=== PATIENT | male | born 1945 | race African-American/Black ===

== ENCOUNTER 2016-11-19 08:15 | Outpatient (CLI) | payer MEDICARE, BC ==
[2016-11-19 11:41] LABS: #Basophils 0.1 thou/uL (0.0-0.2); #Eosinphils 0.1 thou/uL (0.0-0.7); #Lymphocytes 2.2 thou/uL (1.20-3.40); #Monocytes 0.7 thou/uL (0.11-0.59); #Neutrophils 4.4 thou/uL (1.40-6.50); %Eosinophils 1.5 % (0.0-10.0); %Lymphocytes 29.8 % (21.0-51.0); Hematocrit 41.8 % (42.0-52.0); Mean Platelet Volume 8.5 fL (7.4-10.4); Red Blood Cell (RBC) Count 4.62 mill/uL (4.70-6.10); White Blood Cell (WBC) Count 7.4 thou/uL (4.8-10.8)
[2016-11-19 11:45] LABS: Hemoglobin A1c 7.5 % (4.0-6.0)
[2016-11-19 12:04] LABS: Anion Gap 15 mmol/L (10-20); BUN (Urea Nitrogen) 13 mg/dL (8.4-25.7); Calc. Creatinine Clearance 0 mL/min (70-130); Carbon Dioxide 26 mmol/L (23-31); Chloride 106 mmol/L (98-107); Estimated GFR-MDRD 70
== END 2016-11-19 08:16 | disposition home or self-care (01) ==
LOC: LABBT 08:15
PROVIDERS: ATTEND Surgery
DX: Z01.812 Encounter for preprocedural laboratory examination (principal); C18.9 Malignant neoplasm of colon, unspecified
CPT/HCPCS: 80048; 83036; 85025

== ENCOUNTER 2016-11-20 09:24 | Outpatient (CLI) | payer MEDICARE, BC ==
--- NOTE | 2016-11-20 14:15 | NM ---
WHOLE BODY BONE SCAN: Date: 11/20/16 HISTORY: Malignant neoplasm of ascending colon. RADIOPHARMACEUTICAL: 33 mCi technetium-99m MDP injected intravenously. FINDINGS: Increased uptake in the shoulders, elbows, wrists, and feet are consistent with degenerative changes . Foci of increased uptake in the maxilla and mandible are likely due to periodontal disease. No oth er abnormal areas of tracer localization seen to suggest metastatic disease. Tracer excretion throug h the kidneys is within normal limits. IMPRESSION: No evidence of osseous metastatic disease. POS: [facility]
== END 2016-11-20 09:25 | disposition home or self-care (01) ==
LOC: NM 09:24
PROVIDERS: ATTEND Internal Medicine Hematology & Oncology
DX: C18.2 Malignant neoplasm of ascending colon (principal); I10 Essential (primary) hypertension
CPT/HCPCS: 78306; A9503

== ENCOUNTER 2016-11-20 10:15 | Inpatient (IN) | payer MEDICARE, BC ==
[2016-11-19 08:54] VITALS: BMI 36.2
[2016-11-27] MEDS ORDERED: Sodium Chloride 0.9% 100 ML ONE (06:54)
[2016-11-27] MEDS ORDERED: Midazolam HCl 2 mg/2 ml Vial ONE ×2 (06:57→12:09)
[2016-11-27] MEDS ORDERED: Dexamethasone 4 mg/ml Vial ONE (06:57)
[2016-11-27] MEDS ORDERED: Fentanyl 100 MCG/2 ML VIAL ONE ×3 (06:57→12:09)
[2016-11-27] MEDS ORDERED: Indocyanine Green 25 MG/10 ML VIAL ONE (07:15)
[2016-11-27] MEDS ORDERED: Fentanyl 250 MCG/5 ML VIAL ONE (07:17)
[2016-11-27] MEDS ORDERED: Bupivacaine/Epinephrine 0.5% 10 ML VIAL ONE (07:37)
[2016-11-27] MEDS ORDERED: Ondansetron HCl/PF 4 MG/2 ML Vial ONE (07:55)
[2016-11-27] MEDS ORDERED: Propofol 200 MG/20 ML VIAL ONE (07:55)
[2016-11-27] MEDS ORDERED: Promethazine HCl 25 MG/ML VIAL IM PRN ×2 (09:48→13:21)
[2016-11-27] MEDS ORDERED: Ondansetron HCl/PF 4 MG/2 ML Vial IVP PRN ×2 (09:48→13:21)
[2016-11-27] MEDS ORDERED: Promethazine HCl 25 MG/ML VIAL SLOW IVP PRN (09:48)
[2016-11-27] MEDS ORDERED: Rocuronium Bromide 50 MG/5 ML VIAL ONE ×2 (09:54→09:56)
[2016-11-27] MEDS ORDERED: SUGAMMADEX SODIUM 500 MG/5 ML VIAL ONE (10:36)
[2016-11-27] MEDS ORDERED: Insulin Regular 300 UNITS/3 ML VIAL SC PRN (12:03)
[2016-11-27] MEDS ORDERED: Dextrose 50% Abboject 50 ML SYRINGE SLOW IVP PRN ×2 (12:03→13:21)
[2016-11-27] MEDS ORDERED: Dextrose 5% in Water 1,000 ML IV PRN ×2 (12:03→13:21)
[2016-11-27 13:14] LABS: Oxyhemoglobin 97.6 % (94.0-97.0); Sodium 141 mmol/L (135-148)
[2016-11-27 13:15] LABS: Mode OR ABG; Vent YES
[2016-11-27] MEDS ORDERED: HumaLOG 300 UNITS/3 ML VIAL SC PRN (13:21)
[2016-11-27] MEDS ORDERED: Morphine Sulfate 2 MG/ML SYRINGE SLOW IVP PRN (13:21)
[2016-11-27] MEDS ORDERED: Gabapentin 300 MG CAP PO PRN (13:21)
[2016-11-27] MEDS: Sodium Chloride 0.9% 1,000 ML IV SCH (15:09)
[2016-11-27] MEDS: Acetaminophen 1,000 MG in Premix Bag 1 BAG IVPB SCH ×2 (15:09→21:12)
[2016-11-27] MEDS: Enoxaparin Sodium 40 MG/0.4 ML SYRINGE SC SCH (21:13)
[2016-11-27] MEDS: Atorvastatin Calcium 40 MG TAB PO SCH (21:13)
[2016-11-27] MEDS: Famotidine 20 MG TAB PO SCH (21:13)
[2016-11-27] MEDS: Famotidine/PF 20 mg/2ml Vial SLOW IVP SCH (21:14)
[2016-11-28] MEDS: Acetaminophen 1,000 MG in Premix Bag 1 BAG IVPB SCH ×2 (01:59→08:54)
[2016-11-28 05:19] LABS: #Lymphocytes 1.4 thou/uL (1.20-3.40); #Neutrophils 6.5 thou/uL (1.40-6.50); %Basophils 0.2 % (0.0-1.0); %Eosinophils 0.1 % (0.0-10.0); %Lymphocytes 15.7 % (21.0-51.0); %Monocytes 11.4 % (0.0-10.0); Hematocrit 35.2 % (42.0-52.0); Mean Platelet Volume 7.5 fL (7.4-10.4); Red Blood Cell (RBC) Count 3.89 mill/uL (4.70-6.10); White Blood Cell (WBC) Count 8.9 thou/uL (4.8-10.8)
[2016-11-28 05:27] LABS: Anion Gap 12 mmol/L (10-20); BUN (Urea Nitrogen) 9 mg/dL (8.4-25.7); Calc. Creatinine Clearance 107 mL/min (70-130); Calcium 9.2 mg/dL (7.8-10.44); Carbon Dioxide 23 mmol/L (23-31); Chloride 109 mmol/L (98-107); Estimated GFR-MDRD 86
[2016-11-28] MEDS: Sodium Chloride 0.9% 1,000 ML IV SCH (06:38)
[2016-11-28] MEDS: Famotidine 20 MG TAB PO SCH ×2 (08:53→21:09)
[2016-11-28] MEDS: Famotidine/PF 20 mg/2ml Vial SLOW IVP SCH ×2 (08:54→21:09)
--- NOTE | 2016-11-28 13:48 | PRG ---
DATE OF SERVICE: 11/28/2016 Postoperative day 1, right colectomy. The patient is doing well. He is ambulatory in the hallway. He is tolerating his liquid diet without difficulty. His pain is well controlled. His sugars are more normal. He is afebrile. Vital signs are stable. Abdomen is soft and nontender. Wounds are h ealing well. White blood cell count 8, hemoglobin 11, platelet count 248. Sodium 140, potassium 3. 7, creatinine 1. ASSESSMENT: Postoperative day 1 right colectomy. PLAN: Advance to full liquids. Transfer to floor, likely home tomorrow if continues to do well.
[2016-11-28] MEDS ORDERED: Dextrose 5% in Water 1,000 ML IV PRN (18:00)
[2016-11-28] MEDS ORDERED: Dextrose 50% Abboject 50 ML SYRINGE SLOW IVP PRN (18:00)
[2016-11-28] MEDS ORDERED: HumaLOG 300 UNITS/3 ML VIAL SC PRN (18:00)
[2016-11-28] MEDS: Enoxaparin Sodium 40 MG/0.4 ML SYRINGE SC SCH (21:06)
[2016-11-28] MEDS: Atorvastatin Calcium 40 MG TAB PO SCH (21:09)
[2016-11-29] MEDS: Famotidine 20 MG TAB PO SCH ×2 (08:43→20:22)
[2016-11-29] MEDS: Famotidine/PF 20 mg/2ml Vial SLOW IVP SCH ×2 (08:44→20:23)
[2016-11-29] MEDS ORDERED: HYDROcodone/Acetaminophen 10/325 mg Tablet PO PRN ×2 (09:48)
[2016-11-29] MEDS: Sodium Chloride 0.9% 1,000 ML IV SCH (11:08)
--- NOTE | 2016-11-29 13:35 | PRG ---
DATE OF SERVICE: 11/29/2016 Postop day #2 right colectomy. SUBJECTIVE: Mr. Sherwood is doing well. He is tolerating a full liquid diet. He has not had a bow el movement yet, but he denies nausea, bloating or abdominal pain. PHYSICAL EXAMINATION: VITAL SIGNS: Blood pressure 140/81, pulse 60, respirations 18, temperature 97.9. Urine output is g ood. ABDOMEN: Soft, nontender, minimally distended. Wounds are healing well. ASSESSMENT: Postop day #2 right colectomy. PLAN: Continue full liquids. Encouraged ambulation. Discontinue the Zimmer. This was difficult to place secondary to BPH most likely. Plan likely discharge home tomorrow.
[2016-11-29] MEDS ORDERED: Tamsulosin HCl 0.4 MG CAP PO SCH ×2 (13:45→21:00)
[2016-11-29] MEDS: Atorvastatin Calcium 40 MG TAB PO SCH (20:22)
[2016-11-29] MEDS: Enoxaparin Sodium 40 MG/0.4 ML SYRINGE SC SCH (20:23)
--- NOTE | 2016-11-30 07:54 | DIS ---
DATE OF ADMISSION: 11/27/2016 DATE OF DISCHARGE: 11/30/2016 ADMITTING DIAGNOSIS: Ascending colon cancer. DISCHARGE DIAGNOSIS: Ascending colon cancer. PROCEDURES: Laparoscopic right colectomy by Dr. Houser without complication. CONDITION AT DISCHARGE: Improved. STAFF: Dr. Houser. HOSPITAL COURSE: The patient had a clear liquid immediately postoperative. He was in the IMCU for insulin drip secondary to new SSI protocol. On postop day #1, he was transferred to the floor. He is ambulatory. There was some difficulty in placing his Zimmer intraoperatively and so it was left i n for 48 hours; it was removed yesterday afternoon. He is able to void on his own without difficult y. This morning he is doing well. He is tolerating thick liquid diet. He is discharged to home to follow up with me in 2 weeks. Prescriptions sent to [facility] for Parnell and Zofran. He will stay on a full liquid diet for 2 more days before advancing to soft mechanical, no salad or roughage until followup.
[2016-11-30] MEDS ORDERED: Milk Of Magnesia 30 ML UDCUP PO SCH (08:45)
[2016-11-30 08:52] VITALS: BP 142/86; TEMP 98.3
[2016-11-30] MEDS: Famotidine 20 MG TAB PO SCH (08:58)
[2016-11-30] MEDS ORDERED: Non-Formulary Item 1 EACH (Irbesartan/Hydrochlorothiazide [Irbesartan-Hctz 300-12.5 Mg Tb PO SCH (09:00)
[2016-11-30] MEDS ORDERED: Tamsulosin HCl 0.4 MG CAP PO SCH (09:00)
[2016-11-30] MEDS ORDERED: Hydrochlorothiazide 25 MG TAB PO SCH (09:00)
[2016-11-30] MEDS: Famotidine/PF 20 mg/2ml Vial SLOW IVP SCH (09:27)
--- NOTE | 2016-12-03 09:24 | OP ---
DATE OF PROCEDURE: 11/27/2016 PREOPERATIVE DIAGNOSIS: Ascending colon cancer. POSTOPERATIVE DIAGNOSIS: Ascending colon cancer. PROCEDURE: Laparoscopic da Leticia robotic converted to open right hemicolectomy. SURGEON: Jonathan Houser M.D. ANESTHESIA: General. ESTIMATED BLOOD LOSS: 200 mL. COMPLICATIONS: None. FINDINGS: Due to adhesions in the pelvis, there was some difficulty in the small bowel reaching up to the transverse colon. Decision was made to place the hand-assist port and do the anastomosis ext racorporeal to make sure there was no tension on the anastomosis. TECHNIQUE: The patient was taken to the operating room and placed supine on the table, preop tap bl ocks and the abdomen was shaved in the preop holding area. The abdomen was prepped and draped in a sterile fashion and a Zimmer catheter was placed. Left subcostal 11-mm Optiview trocar was placed in the usual fashion without injury. High-flow pneumoperitoneum was obtained. Robot 8 mm port placed at the left of the umbilicus, a 11 port placed in the left upper lateral abdomen. The 11 mm subcos da port switched out to 15 mm robot stapler port. An 8 mm robot assist port was placed in the left lower quadrant. The patient was placed in Trendelenburg position and rolled to the left. All port s were docked to the robot. Surgeon goes to the console. Medial to lateral dissection was performe d starting at the base of the ileocolic artery. Ileocolic artery was taken using vessel sealer. Di ssection was performed all the way towards to the white line of Toldt laterally. The ureter was fou nd and excluded from the dissection. Vessel sealer was then used through this window to dissect up to the surface of the terminal ileum. Cautery was then used to mobilize up the medial aspect toward s the hepatic flexure. The duodenum was found and excluded from the dissection. Dissection was per formed all the way to the proximal transverse colon. A circumferential dissection of the proximal t ransverse colon was performed. After the right colon was fully mobilized, a robot stapler was fired across the terminal ileum. Two reloads were fired across the proximal transverse colon. Thus, the ascending colon specimen was thus unhurt. The small bowel was able to pull up into the upper abdom en, but under a significant amount of tension, this was difficult to do robotic, so the decision was made to place a hand-assist port. All ports were then undocked from the robot. A 6 cm incision wa s made in the upper midline. Hand-assist port was placed. Small bowel was able to be manipulated u p by lysing some adhesions in the pelvis in an isoperistaltic fashion against the transverse colon. Enterotomy was made on the end of the small bowel segment and the more distal transverse colon and a [id number] isoperistaltic anastomosis was performed. The common enterotomy was closed using a 2 -0 Vicryl running in two layers. There was no ischemia to the staple line. The colon specimen was removed from the abdomen through this port. All instrument counts, needle counts, and lap counts we re correct. The hand-assist port was removed. Surgeon and assistants all changed gown and gloves. Midline fascia was closed using #1 PDS from the top and the bottom and tied in the middle. Subcuta neous tissues were irrigated copiously using sterile solution. The incisions were closed using 3-0 Vicryl, 4-0 Monocryl, and Dermabond. The patient was en route to recovery in stable condition. All instrument counts, needle counts, and lap counts were correct.
== END 2016-11-30 09:22 | disposition home or self-care (01) | DRG 330 ==
LOC: SURG A 11-27 05:41 → IMCU/EMU 11-27 12:10 → SURG A 11-28 17:38
PROVIDERS: ADMIT Surgery; ATTEND Surgery
PROC: 0DTK4ZZ Resection of Ascending Colon, Percutaneous Endoscopic Approach (ICD-10-PCS; principal; 2016-11-27)
PROC: 8E0W4CZ Robotic Assisted Procedure of Trunk Region, Percutaneous Endoscopic Approach (ICD-10-PCS; 2016-11-27)
DX: C18.2 Malignant neoplasm of ascending colon (principal); I69.351 Hemiplegia and hemiparesis following cerebral infarction affecting right dominant side; E11.9 Type 2 diabetes mellitus without complications; I10 Essential (primary) hypertension; E78.1 Pure hyperglyceridemia
CPT/HCPCS: 36415; 36416; 80048; 82805; 85025; 86850; 86900; 86901; 88309; J0360; J0694; J1100; J1650; J1815; J2250; J2270; J2405; J2704; J3010; J3490; J7050; J7620; S0028

== ENCOUNTER 2016-12-03 00:30 | Inpatient (IN) | payer MEDICARE, BC ==
[2016-12-03 01:49] LABS: Lactic Acid - Sepsis 6.7 mmol/L (0.5-2.2)
[2016-12-03 01:52] LABS: Magnesium 3.2 mg/dL (1.6-2.6)
[2016-12-03] MEDS ORDERED: Sodium Chloride 0.9% 0 ML ONE ×2 (02:06→02:08)
[2016-12-03] MEDS ORDERED: Piperacillin/Tazobactam 4.5 GM VIAL ONE (02:06)
[2016-12-03] MEDS ORDERED: Benzocaine 20% Spray 60 ML CAN ONE ×2 (02:30→02:34)
[2016-12-03] MEDS ORDERED: Oxymetazoline HCl 0.05% ( 15 ML ) ONE (02:30)
[2016-12-03] MEDS ORDERED: Ondansetron HCl/PF 4 MG/2 ML Vial ONE (03:10)
[2016-12-03 04:03] VITALS: BMI 36.1
[2016-12-03] MEDS ORDERED: Sodium Chloride 0.65% Nasal 44 ML BOT EA NARE PRN (04:17)
[2016-12-03] MEDS ORDERED: Eucerin (Mineral Oil/Petrolatum,White) 30 gm Jar TOP PRN (04:17)
[2016-12-03] MEDS ORDERED: Artificial Tears 18 DROP/0.9 ML EA EYE PRN (04:17)
[2016-12-03] MEDS ORDERED: Acetaminophen 650 MG Suppository PR PRN (04:17)
[2016-12-03] MEDS ORDERED: hydrALAZINE 20 MG/ML VIAL SLOW IVP PRN (04:17)
[2016-12-03] MEDS ORDERED: Dextrose 5% in Water 1,000 ML IV PRN (04:24)
[2016-12-03] MEDS ORDERED: Dextrose 50% Abboject 50 ML SYRINGE SLOW IVP PRN (04:24)
[2016-12-03] MEDS: Sodium Chloride 0.9% 1,000 ML IV SCH ×2 (04:43→08:50)
[2016-12-03 05:10] LABS: ALT (SGPT) 12 U/L (8-55); AST (SGOT) 9 U/L (5-34); Alkaline Phosphatase 76 U/L (40-150); Anion Gap 21 mmol/L (10-20); BUN (Urea Nitrogen) 37 mg/dL (8.4-25.7); Bilirubin, Total 0.8 mg/dL (0.2-1.2); Calc. Creatinine Clearance 38 mL/min (70-130); Calcium 9.6 mg/dL (7.8-10.44); Carbon Dioxide 22 mmol/L (23-31); Chloride 102 mmol/L (98-107); Estimated GFR-MDRD 26; Globulin 3.3 g/dL (2.4-3.5); Protein, Total 6.4 g/dL (5.8-8.1); Uric Acid 5.8 mg/dL (3.5-7.2)
[2016-12-03 05:23] LABS: Troponin I 0.045 ng/mL (< 0.028)
[2016-12-03] MEDS: metroNIDAZOLE 500 MG in Premix Bag 1 BAG IVPB SCH ×2 (05:45→15:27)
[2016-12-03 05:47] LABS: Band 35 % (5-11); Hematocrit 39.5 % (42.0-52.0); Mean Platelet Volume 7.7 fL (7.4-10.4); Metamyelocyte 8 % (0-0); Neutrophil 37 % (42-75); Reactive Lymphocytes 1 % (0-10); Red Blood Cell (RBC) Count 4.44 mill/uL (4.70-6.10); White Blood Cell (WBC) Count 9.6 thou/uL (4.8-10.8)
--- NOTE | 2016-12-03 06:09 | CON ---
DATE OF CONSULTATION: 12/03/2016 PRIMARY CARE PHYSICIAN: Dr. Rishi Hernandez, in the [place]. CHIEF COMPLAINT: High-grade distal small bowel obstruction. PRIMARY ATTENDING: Jonathan Houser M.D. REASON FOR CONSULT: Medical comanagement. HISTORY OF PRESENT ILLNESS: A 71-year-old -[place] male, who was recently admitted in our ospital on 11/27/2016. Patient had laparoscopic right hemicolectomy for ascending colon cancer. Th e patient was discharged home on 11/30/2016. Patient reports that when he was discharged at that [facility] he was having hiccups since discharge, the patient is not doing well at home. He is feeling more weak and he was also having difficulty breathing. His last bowel movement was on Saturday. He had episode of vomiting yesterday at home. He was feeling nausea, poor appetite, abdominal distention, and abdominal crampy pain. With these symptoms, he presented to [facility] where he was evaluated and subsequently, he was transferred to our hospital for higher level of care. In our emergency room, patient required NG tube and significant amount of material from stomach came out. In the emergency room, the patient's blood pressure dropped to 74/54. Routine blood tests sh owed lactic acidosis. The patient was given broad-spectrum antibiotic therapy. Subsequently, liz izquierdo was admitted to [facility]. Patient was seen in the emergency room and subsequently in IMCU as well. Patient denies any fever o r cough. He denies any melena, hematochezia. He denies any lower extremity swelling or calf tender ness. REVIEW OF SYSTEMS: The following complete review of systems was negative, unless otherwise mentione d in the HPI or below: Constitutional: Weight loss or gain, ability to conduct usual activities. Skin: Rash, itching. Eyes: Double vision, pain. ENT/Mouth: Nose bleeding, neck stiffness, pain, tenderness. Cardiovascular: Palpitations, dyspnea on exertion, orthopnea. Respiratory: Shortnes s of breath, wheezing, cough, hemoptysis, fever or night sweats. Gastrointestinal: Poor appetite, abdominal pain, heartburn, nausea, vomiting, constipation, or diarrhea. Genitourinary: Urgency, fr equency, dysuria, nocturia. Musculoskeletal: Pain, swelling. Neurologic/Psychiatric: Anxiety, de pression. Allergy/Immunologic: Skin rash, bleeding tendency. Please see my HPI for pertinent posi tives and negatives. All other review of systems reviewed and negative except as mentioned in the H PI. PAST MEDICAL HISTORY: Diabetes type 2, hypertension, dyslipidemia, morbid obesity, sleep apnea, gou t, history of cerebrovascular accident, adenocarcinoma of colon, nephrolithiasis, chronic low back p ain. PAST SURGICAL HISTORY: Laparoscopic right hemicolectomy, back surgery, cataract surgery, colonoscop y. PAST PSYCHIATRIC HISTORY: Reviewed and negative. SOCIAL HISTORY: Patient is and lives at home with his . No history of tobacco, alcohol , or illicit drug abuse. FAMILY HISTORY: Diabetes, hypertension, heart disease that runs among several family members. ALLERGIES: No known drug allergies. CURRENT HOME MEDICATIONS: The patient was discharged home on following medications: Allopurinol 30 0 mg p.o. daily, aspirin 81 mg p.o. daily, vitamin D3 50,000 units as directed, Plavix 75 mg p.o. da abram, gabapentin 300 mg t.i.d., irbesartan with hydrochlorothiazide 300/12.5 one tablet p.o. daily, T oprol-XL 200 mg p.o. at bedtime, potassium citrate 10 mEq p.o. t.i.d., amlodipine with Lipitor 10/40 one tablet p.o. daily, metformin 500 mg p.o. b.i.d., oxycodone one tablet p.o. b.i.d. EMERGENCY ROOM COURSE: Patient required NG tube placement and 2900 mL brown liquid came out immedia tely. The patient had low blood pressure and patient was given bolus fluids. His lactate was eleva saige and that is why the patient was given vancomycin and Zosyn. The patient was given Zofran and IV fluid. PHYSICAL EXAMINATION: VITAL SIGNS: On arrival, blood pressure 95/48, pulse 97, respiratory rate 22, temperature 97.8, sat uration 94% on 2 liter oxygen. Weight 127 kilograms. Lowest blood pressure was 77/46. GENERAL: Patient is currently alert, awake, has NG tube in place. No obvious acute distress, has i ntractable hiccups. HEENT: Head: Normocephalic, atraumatic. Eyes: Pupils round, reactive to light. Extraocular musc le intact. ENT: Oropharynx within normal limits. Moist mucous membranes. NG tube in place. NECK: Supple. Range of motion is normal. No JVD, no thyromegaly, no carotid bruits. LUNGS: Clear to auscultation without any rhonchi or rales. Reduced air entry at base. CARDIAC: S1, S2 regular, tachycardia, no murmur, no gallop, no rub. ABDOMEN: Hypoactive bowel sounds. Surgical site is clean and healing. Mild abdominal distention n oted. Obesity present. BACK: Unremarkable, no CVA tenderness. EXTREMITIES: Upper extremity passive movements of all joints are normal. Lower extremities: No ed yamileth. Good peripheral pulsation. SKIN: No skin rash. HEMATOLOGICAL SYSTEM: No lymphadenopathy. PSYCHIATRIC: Normal affect. SIGNIFICANT LABS: 1. EKG, sinus tachycardia, left axis deviation. Chest x-ray based on my review, no acute cardiopul monary process. CT of the abdomen and pelvis showing high-grade distal small bowel obstruction. La ctic acid 6.7, magnesium 3.2, CK 70, CK-MB 1.2, troponin I 0.100. BNP 208.4. BMP shows sodium 139, potassium 3.5, carbon dioxide 24, glucose 341. Creatinine 2.8, BUN 31, calcium 10.0. 2. LFT: AST 10, ALT 14, alkaline phosphatase 81, albumin 3.7, protein 8.5. Lipase 5. CBC: WBC 9 .5, hemoglobin 13.0, platelets 394. ASSESSMENT AND PLAN: 1. High-grade distal small bowel obstruction. This patient has nausea, vomiting, abdominal distent ion, and crampy abdominal pain. He had recently right hemicolectomy most likely adhesion-related sm all bowel obstruction. After NG tube, 2900 mL brown liquid came out from his stomach. After that, he is feeling better. Patient has very hypoactive bowel sound. At this point, we will keep him n.p .o. We will continue with NG tube with low intermittent suction. Dr. Houser is primary, further d ecision will defer to him. If conservative approach does not improve his obstruction, then he may n eed surgery. Patient may need small bowel x-ray. 2. Acute hypotension. This patient had hypotension in the emergency room after NG and 2900 mL flui d removed from the stomach, might be vasovagal response. Underlying sepsis cannot be entirely exclu ded. Currently, blood pressure is improved after IV fluid. We will continue with NS at 125 mL per hour. 3. Lactic acidosis, most likely related with distal small bowel obstruction, underlying infectious, less likely to be, but cannot be entirely excluded. Patient is on broad spectrum antibiotic therap y and we will repeat lactic acid tomorrow. 4. Elevated troponin. I will repeat the cardiac enzymes again later on today, most likely demand i schemia. 5. Acute kidney failure, likely due to prerenal etiology. Patient was hypotensive and he has under lying obstruction. The patient will be given IV fluid and we will repeat BMP tomorrow. We will hermelindo id nephrotoxic agents. We will also check urinalysis, urine sodium, and creatinine. 6. Diabetes type 2. We will continue insulin as per sliding scale protocol. We will hold on metfo rmin therapy because of renal failure. 7. History of hypertension, but currently low blood pressure, and that so we will hold on antihyper tensive medication. 8. Obstructive sleep apnea. Patient can use his home CPAP machine when he is able to. 9. Chronic low back pain. We will control his pain with the morphine p.r.n. basis. 10. Gout. We will check uric acid. At this point, the patient is n.p.o., that so we will hold on allopurinol therapy. 11. Deep venous thrombosis prophylaxis, heparin 5000 units subcu twice daily. 12. Gastrointestinal prophylaxis. Protonix 40 mg IV daily. 13. Code status: The patient is FULL CODE. The patient's is surrogate decision maker. Disposition plan based on clinical course. Patient will have broad-spectrum antibiotic therapy with vancomycin, Zosyn, and Flagyl for lactic acidosis and suspected sepsis. We will follow up on cultu re result. Thank you for the consult. We will follow up with you while in hospital.
--- NOTE | 2016-12-03 07:57 | PDOC.PN ---
- Subjective Encounter Start Date: 12/03/16 Encounter Start Time: 07:56 - Objective Resuscitation Status: Resuscitation Status FULL:Full Resuscitation MAR Reviewed: Yes Vital Signs & Weight: Vital Signs (12 hours) Temp Pulse Resp BP Pulse Ox 12/03/16 06:54 97.5 F L 98 20 122/59 L 98 12/03/16 04:55 97.7 F 93 20 99 12/03/16 03:50 97.7 F 93 20 140/76 100 Weight Weight 258 lb 12.8 oz I&O: 12/02/16 12/03/16 12/04/16 06:59 06:59 06:59 Intake Total 450 Output Total 1650 Balance -1200 Result Diagrams: 12/03/16 04:44 12/03/16 04:44 Additional Labs: Accuchecks 12/03/16 05:05 POC Glucose 186 H Radiology Reviewed by me: Yes (cxr- no chf or infiltrate) EKG Reviewed by me: Yes (CT abd- bowel obstruction) Phys Exam - Physical Examination Constitutional: NAD Neck: no JVD Respiratory: clear to auscultation bilateral Cardiovascular: RRR, no significant murmur distended, tender, tympanitic, quiet Musculoskeletal: no edema Dx/Plan (1) Bowel obstruction Code(s): K56.609 - UNSP INTESTNL OBST, UNSP TO PARTIAL VERSUS COMPLETE OBST Status: Acute Qualifiers: Intestinal obstruction extent: complete (2) DM type 2 (diabetes mellitus, type 2) Status: Acute Qualifiers: Diabetes mellitus complication status: with kidney complications Diabetes mellitus complication detail: with other kidney complication Diabetes mellitus vacation sales advisor insulin use: without vacation sales advisor use Qualified Code(s): E11.29 - Type 2 diabetes mellitus with other diabetic kidney complication (3) Acute renal failure Status: Acute Qualifiers: Acute renal failure type: unspecified Qualified Code(s): N17.9 - Acute kidney failure, unspecified (4) Lactic acid acidosis Code(s): E87.2 - ACIDOSIS Status: Acute (5) HTN (hypertension) Code(s): I10 - ESSENTIAL (PRIMARY) HYPERTENSION Status: Acute Qualifiers: Hypertension type: essential hypertension Qualified Code(s): I10 - Essential (primary) hypertension - Plan cont NG to suction, cont iv fluids, iv antibx -: cont accu/ ss -: monitor lytes, fenal fcn * .
--- NOTE | 2016-12-03 08:04 | CT ---
PRELIMINARY REPORT/[facility]/EMERGENCY AFTER HOURS PROCEDURE: EXAM: CT Abdomen and Pelvis Without Intravenous Contrast EXAM DATE/TIME: Exam ordered 12/03/2016 1:35 AM CLINICAL HISTORY: 71 years old, male; Pain and signs and symptoms; Bloating; Abdominal pain; Generalized; Prior surger y; Patient HX: 71 yo m presents to ed from another facility with possible sbo. 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 Pt C/O generalized abdominal pain, nausea, abdominal distension, weakness, and SOB since d/c. Family reports pt vomited at home today. Denies f ever, denies chills or sweats. TECHNIQUE: Axial computed tomography images of the abdomen and pelvis without intravenous contrast. Coronal reformatted images were created and reviewed. COMPARISON: No relevant prior studies available. FINDINGS: Lower thorax: Distal esophagus is distended with fluid, compatible with gastroesophageal reflux. ABDOMEN: Liver: Unremarkable. Gallbladder and bile ducts: Unremarkable. No calcified stones. No ductal dilation. Pancreas: Unremarkable. No ductal dilation. Spleen: Unremarkable. No splenomegaly. Adrenals: Unremarkable. No mass. Kidneys and ureters: There is a 3 mm calcification projecting in the lumen of the distal left ureter . No obstructive uropathy. Stomach and bowel: High-grade distal small bowel obstruction with transition point in the lateral ri ght midabdomen, presumably secondary to adhesion. Prior right hemicolectomy. No bowel wall thickenin g. Stomach is distended with fluid. No bowel wall thickening. Appendix: See above. PELVIS: Bladder: Unremarkable. No stones. Reproductive: Unremarkable as visualized. ABDOMEN and PELVIS: Intraperitoneal space: No hemoperitoneum. No free air. Bones/joints: No acute fracture. No dislocation. Soft tissues: Gas in the deep subcutaneous tissue of the left anterior abdominal wall, presumably li mited to recent surgery. No abscess or hematoma. Vasculature: Unremarkable. No abdominal aortic aneurysm. Lymph nodes: Unremarkable. No enlarged lymph nodes. IMPRESSION: 1. High-grade distal small bowel obstruction with transition point in the lateral right midabdomen, presumably secondary to adhesion. 2. There is a 3 mm calcification projecting in the lumen of the distal left ureter. No obstructive u ropathy. Thank you for allowing us to participate in the care of your patient. Dictated and Authenticated by: Jimmy Bell MD 12/03/2016 2:05 AM Central Time ([place] \T\ [place]) FINAL REPORT NONCONTRAST ENHANCED CT IMAGES OF ABDOMEN AND PELVIS: Date: 12/03/16 HISTORY: 71-year-old male with generalized abdominal pain. Evaluate for possible renal calculi as a renal sto ne CT protocol was ordered by ER staff. FINDINGS: Gas is seen in the left lateral abdominal wall, compatible with patient's recent surgery. Extensive small bowel dilatation is seen. There may be a transition zone in the right lateral abdomen. Patient has had a previous partial colectomy. There is a distal left ureteral calculus visualized, but no definite evidence of left-sided hydroure teronephrosis. The patient has had previous lumbar spine surgery. IMPRESSION: Abnormal and marked small bowel dilatation concerning for bowel obstruction or postoperative ileus. POS: [facility]
[2016-12-03] MEDS ORDERED: Sodium Chloride 0.9% 1,000 ML IV SCH ×2 (08:15→09:45)
--- NOTE | 2016-12-03 08:30 | RAD ---
PORTABLE UPRIGHT FRONTAL CHEST RADIOGRAPH: DATE: 12/03/16. COMPARISON: None. HISTORY: Hypoxia. FINDINGS: There is mild elevation of the left hemidiaphragm. No pneumothorax, pleural fluid, focal consolidat ion, or alveolar edema. IMPRESSION: No acute findings. POS: [facility]
[2016-12-03] MEDS: Pantoprazole 40 MG VIAL IVP SCH (08:39)
[2016-12-03] MEDS: Heparin 5,000 UNITS/ML VIAL SC SCH ×2 (08:39→22:09)
[2016-12-03] MEDS: Piperacillin/Tazobactam 3.375 GM in Sodium Chloride 0.9% 100 ML IVPB SCH ×3 (08:40→22:10)
[2016-12-03] MEDS ORDERED: Famotidine/PF 20 mg/2ml Vial SLOW IVP SCH (09:00)
[2016-12-03] MEDS ORDERED: Enoxaparin Sodium 40 MG/0.4 ML SYRINGE SC SCH (09:00)
[2016-12-03] MEDS ORDERED: FLU VACC TS2017-18 (>65YR) 0.5 ML SYRINGE IM ONE (09:00)
--- NOTE | 2016-12-03 09:51 | HP ---
REASON FOR ADMISSION/CHIEF COMPLAINT: Nausea, vomiting. HISTORY OF PRESENT ILLNESS: The patient is a 71-year-old male who is 6 days status post laparoscopi c right hemicolectomy for a stage I T3 N0 colon cancer. He was discharged on Saturday. His repo rts that he has been having hiccups since he went home and progressive abdominal distention. He did have a small bowel movement on Saturday and yesterday, but he started vomiting and having increasin g abdominal pain. He was taken to the emergency room. He has also been complaining of hiccups. PAST MEDICAL HISTORY: Colon cancer, hypertension, diabetes, obesity, gout. He had a CVA in 2002. PAST SURGICAL HISTORY: Back surgery x2 and recent colon surgery. MEDICATIONS: Aspirin, amlodipine, vitamin D, metoprolol, Plavix, metformin, gabapentin, allopurinol . ALLERGIES: No known drug allergies. 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 No tobacco or alcohol. FAMILY HISTORY: Diabetes and heart disease. PHYSICAL EXAMINATION: VITAL SIGNS: He is afebrile, pulse 97, blood pressure 120/70, 98% sat. GENERAL: Obese male, appears somewhat sedated. HEENT: He has got an NG tube draining a brownish fluid. LUNGS: Clear. HEART: Regular rate and rhythm. ABDOMEN: Soft, obese. The incisions are healing well, but there is moderate ecchymoses. No eviden ce of infection. LABORATORY AND X-RAY FINDINGS: White count is 9.6, H\T\H 12 and 39, platelet count 306. Electrolyt es show a creatinine of 2.9 and a glucose of 208. CT scan shows distended small bowel with a transition zone in the right lateral abdomen. ASSESSMENT: Ileus versus obstruction. PLAN: IV hydration, NG suction.
[2016-12-03 11:12] LABS: Bilirubin Negative (Negative); Blood, Urine Small (Negative); Glucose, Urine (Dipstick) Negative (Negative); Ketone, Urine Trace mg/dL (Negative); Nitrite Negative (Negative); Protein, Urine (Dipstick) 30 mg/dL (Neg-Trace); Urobilinogen 0.2 mg/dL (0.2-1.0)
[2016-12-03 11:15] LABS: Bacteria/HPF None Seen HPF (None Seen)
[2016-12-03 11:41] LABS: Hyaline Casts/LPF 4-6 HYALINE CAST LPF (0-3 Hyaline)
[2016-12-03 11:42] LABS: Yeast-All Forms None Seen HPF (None Seen)
[2016-12-03] MEDS ORDERED: Dextrose 5 % And 0.9 % NaCl 1,000 ML IV SCH (12:30)
--- NOTE | 2016-12-03 14:06 | CON ---
DATE OF CONSULTATION: 12/03/2016 CONSULTING PHYSICIAN: Dr. Tod Schrader REQUESTING PHYSICIAN: Dr. Gaines REASON FOR CONSULTATION: Acute kidney injury. IMPRESSION: Acute kidney injury. This is likely hemodynamically mediated acute tubular necrosis in the context of prolonged prerenal state due to intraabdominal accumulation of fluid. PLAN: 1. Hemodynamic support with IV fluid. 2. Renally dose all medications per low GFR and avoid potentially nephrotoxic agents. 3. Further management will be dependent on the clinical course. If this were to be an established acute tubular necrosis, it would not be a surprise if the creatinine rises further before it begins to improve. In any case, the patient is nonoliguric at this point. HISTORY OF PRESENT ILLNESS: History is that of a 71-year-old gentleman who recently did undergo a partial right hemicolectomy due to ascending colon cancer who went home, was not really doing well a nd represented here and noted to have evidence of acute kidney injury. The patient is hypotensive w ith high grade small-bowel obstruction. The patient is now with a functional NG tube. Patient curr ently receiving IV fluid with improved hemodynamics. Of note, the patient's creatinine has gone up to 2.9, but the patient's baseline creatinine as per recent visit was 1.0. PAST MEDICAL HISTORY: A recent hemicolectomy due to colon cancer, hypertension, diabetes, gout, and history of CVA. MEDICATIONS: Reviewed as documented on [facility]. Metformin is on hold at this point. ALLERGIES: No known drug allergies. SOCIAL HISTORY: No alcohol, no tobacco. Retired from [employer]. FAMILY HISTORY: Significant for diabetes and heart disease, but no family history of kidney disease . REVIEW OF SYSTEMS: As documented in the body of the history. The other systems reviewed except con stant hiccups are pretty much unremarkable. PHYSICAL EXAMINATION: GENERAL: The patient was noted to be having constant hiccups. VITAL SIGNS: Afebrile with temperature 98.1, pulse 85, respiratory rate 20, O2 sat 99%, blood press ure 113/58. HEENT: Unremarkable with moist oral mucosa. Neck was supple. No conjunctival injection or icterus . CARDIOVASCULAR SYSTEM: First and second heart sounds were heard. RESPIRATORY SYSTEM: Clear to auscultation. DIGESTIVE SYSTEM: Revealed a benign abdomen with positive bowel sounds. EXTREMITIES: No peripheral edema. SKIN: No new gross rash. LYMPHATICS: No peripheral lymphadenopathy. SUMMARY: A 71-year-old gentleman who presented here with high grade small-bowel obstruction, now ex periencing acute kidney injury. Thank you for this consultation. We will follow with you.
[2016-12-03] MEDS ORDERED: Vancomycin HCl 1.5 GM in Sodium Chloride 0.9% 250 ML 300 ML IVPB SCH (16:00)
[2016-12-03] MEDS: Dextrose 5 %-0.45 % NaCl 1,000 ML IV SCH ×2 (16:26→23:14)
[2016-12-04] MEDS: HumaLOG 300 UNITS/3 ML VIAL SC PRN ×2 (00:10→06:19)
--- NOTE | 2016-12-04 01:33 | CON ---
DATE OF SERVICE: 12/03/2016 SERVICE: Pulmonary Medicine. REASON FOR CONSULTATION: IMCU patient. HISTORY OF PRESENT ILLNESS: Patient is a 71-year-old male with past medical history significant for recent colon surgery. In the perioperative period, everything was fine, but he developed increasing nausea with vomiting. He returned to the hospital and was discovered to have a bowel obstruction and acute kidney injury associated with profound dehydration. He originally was a little bit hypotensive, but this has resolved. He feels much improved now that he has got a little bit of hydration. Otherwise, there has been no interval change to his condition. He has an NG tube in place, which is decompressing. He has had over 4 liters out from the NG tube in the last 24 hours. PAST MEDICAL HISTORY: 1. Colon cancer, status post partial colectomy. 2. Hypertension. 3. Type 2 diabetes mellitus. 4. Morbid obesity. 5. Gout. 6. History of stroke. PAST SURGICAL HISTORY: 1. Back surgery x2. 2. Partial colectomy. ALLERGIES: No known drug allergies. MEDICATIONS: Medications list of inpatient medicines were reviewed. No specific updates were made at this time. SOCIAL HISTORY: He used to work in [employer]. He denies any alcohol, tobacco, or illicit drug use and has no exposure to chemicals, dust, asbestos, or tuberculosis outside of the [employer]. FAMILY HISTORY: Noncontributory. REVIEW OF SYSTEMS: General, head, ears, eyes, nose, throat, cardiovascular, respiratory, gastrointestinal, genitourinary, musculoskeletal, neurologic, and skin is negative except as mentioned in the HPI. PHYSICAL EXAMINATION: VITAL SIGNS: Afebrile, pulse 96, blood pressure 124/74, respirations 20, saturation 99% on room air. GENERAL: Patient is awake and alert, in no apparent distress. LUNGS: Excellent air entry with no prolonged expiratory phase, wheezing, rhonchi, or crackles. HEART: Normal rate, regular. ABDOMEN: Soft, nontender, and nondistended. Bowel sounds are hypoactive/ absent. GENITOURINARY: No Zimmer catheter. NEUROLOGIC: Grossly nonfocal. LABORATORY DATA: WBC 9.6, hemoglobin 12.5, platelets 306,000. Neutrophil count is 37% and band count is 35%. Creatinine 2.90. BUN 37. Basic metabolic profile is otherwise essentially unremarkable. Lactic acid is 5.4. Glucose is ranging from 186 to 199. Troponin 0.045. IMAGING: CT of the abdomen and pelvis demonstrates high grade distal small- bowel obstruction with transition point in the lateral right mid abdomen, presumptively secondary to an adhesion. There is a 3 mm calcification in the lumen of the distal left ureter without any obstructive uropathy. Chest x-ray demonstrates no acute cardiopulmonary abnormality. The left hemidiaphragm is mildly elevated. ASSESSMENT: 1. Ileus in the post operative setting. 2. Acute kidney injury. 3. Profound dehydration. PLAN: We will continue gentle hydration. The Zosyn was empirically initiated, though I am not really convinced that acute infectious process is occurring. The band count was likely secondary to his profound volume depletion. Vancomycin and Flagyl will be discontinued altogether. I do not think we need to cover MRSA and the Zosyn more than adequately covers anaerobic organisms. I switch the IV fluids over to D5 half normal saline and will likely back off on the rate once his output from his NG tube starts to drop off. Laboratories will be repeated tomorrow morning as well. A lactate will also be repeated. Pulmonary will continue to follow while he remains in this location. MTDD
[2016-12-04] MEDS ORDERED: Vancomycin HCl 1.25 GM in Sodium Chloride 0.9% 250 ML 250 ML IVPB SCH (03:00)
[2016-12-04] MEDS: Piperacillin/Tazobactam 3.375 GM in Sodium Chloride 0.9% 100 ML IVPB SCH ×4 (03:23→20:30)
[2016-12-04 05:15] LABS: Anion Gap 14 mmol/L (10-20); BUN (Urea Nitrogen) 29 mg/dL (8.4-25.7); Calc. Creatinine Clearance 65 mL/min (70-130); Calcium 9.9 mg/dL (7.8-10.44); Carbon Dioxide 25 mmol/L (23-31); Chloride 108 mmol/L (98-107); Estimated GFR-MDRD 48; Magnesium 2.6 mg/dL (1.6-2.6); Phosphorus 2.4 mg/dL (2.3-4.7)
[2016-12-04 05:23] LABS: Band 37 % (5-11); Hematocrit 36.7 % (42.0-52.0); Mean Platelet Volume 7.8 fL (7.4-10.4); Metamyelocyte 2 % (0-0); Neutrophil 29 % (42-75); Red Blood Cell (RBC) Count 4.04 mill/uL (4.70-6.10); White Blood Cell (WBC) Count 9.5 thou/uL (4.8-10.8)
[2016-12-04] MEDS: Dextrose 5 %-0.45 % NaCl 1,000 ML IV SCH (06:10)
--- NOTE | 2016-12-04 08:45 | RAD ---
ABDOMEN 2 VIEWS: Date: 12/04/16 HISTORY: Small bowel obstruction. COMPARISON: None. FINDINGS: Nasogastric tube is in the epigastric region. Multiple air-filled loops of small bowel are noted. Pa ucity of colonic gas. IMPRESSION: Small bowel obstruction. Continued surveillance. POS: [facility]
--- NOTE | 2016-12-04 08:55 | PRG ---
DATE OF SERVICE: 12/04/2016 The patient was seen and examined, still having constant hiccups. PHYSICAL EXAMINATION: VITAL SIGNS: Afebrile with temperature 98.4, pulse 93, respiratory rate 18, O2 saturation 100% with a blood pressure 129/73. HEENT: Unremarkable with moist oral mucosa. Neck was supple. NG tube is in place. CARDIOVASCULAR: First and second heart sounds were heard. RESPIRATORY: Clear to auscultation. DIGESTIVE: Revealed a distended abdomen with minimal bowel sounds. EXTREMITIES: No peripheral edema. SKIN: No new gross rash. LYMPHATICS: No peripheral lymphadenopathy. LABORATORY INVESTIGATIONS: Showed a creatinine down to 1.69, potassium of 3.5. Lactic acid 2.7. IMPRESSION: 1. Acute kidney injury which seems to be responding to current conservative measures. 2. Relatively mild hypokalemia. 3. Small-bowel obstruction with constant hiccups. PLAN: 1. Would deescalate IV fluid resuscitation in this patient. In fact, will transition this patient over to IV fluid with low dose potassium to avoid hypokalemia, which will compound the ileus in thi s patient. 2. Further management to be dependent on the clinical course. Metformin and angiotensin receptor b lockers still need to be on hold.
--- NOTE | 2016-12-04 09:04 | RAD ---
RADIOGRAPH ABDOMEN TWO VIEWS: Date: 12-04-16 Time: 8:03 a.m. History: 71-year-old male with abdominal distention. Ileus versus small bowel obstruction. Comparison: 12-04-16 at 4:30 a.m. FINDINGS: NG tube remains with distal tip in the right upper quadrant. No gaseous distention of the stomach. T he stomach is collapsed. No evidence of free air. Multiple dilated small bowel loops with air fluid levels. There is gas in the nondilated transverse colon. No major interval change in the abdomen bow el gas pattern. IMPRESSION: 1. No major interval change. 2. Abnormal bowel gas pattern, small bowel obstruction vs ileus. The former is slightly favored. POS: [facility]
[2016-12-04] MEDS: Heparin 5,000 UNITS/ML VIAL SC SCH ×2 (09:13→20:29)
[2016-12-04] MEDS: Metoclopramide HCl 10 MG/2 ML VIAL IVP PRN (09:13)
[2016-12-04] MEDS: D5 1/2 NS w/40 mEq KCL 1,000 ML IV SCH ×2 (09:14→20:30)
[2016-12-04] MEDS: Pantoprazole 40 MG VIAL IVP SCH (09:14)
--- NOTE | 2016-12-04 10:24 | PRG ---
DATE OF SERVICE: 12/04/2016 SERVICE: Pulmonary Medicine INTERVAL HISTORY: The patient is doing fine from a cardiovascular and respiratory standpoint. He denies any current shortness of breath, nausea, vomiting, diarrhea, chest pain or cough. He continues to have almost continuous hiccups. These are preventing him from getting any consolidated rest. Today, we have not tried anything to suppress them, but given the severity, I think I am willing to try. He has not been out of bed since being here. Otherwise, there were no events overnight. PHYSICAL EXAMINATION: VITAL SIGNS: Afebrile, pulse 97, blood pressure 129/73, respirations 21, saturation 100% on room air. GENERAL: The patient is awake, alert, in no apparent distress. LUNGS: Decent air entry with no prolonged expiratory phase, wheezing, rhonchi or crackles. HEART: Normal rate, regular. ABDOMEN: Soft, nontender, nondistended. Bowel sounds are absent. He has tympani with percussion. MUSCULOSKELETAL: No cyanosis or clubbing. No pitting in the bilateral lower extremities. Skin tenting is improved. : No Zimmer catheter in place. NEUROLOGIC: Grossly nonfocal. LABORATORY DATA: WBC 9.5, hemoglobin 11.3, platelets 333,000. Band count and neutrophil count are stable. Creatinine 1.69 and aggressively down trending. Basic metabolic profile is otherwise unremarkable. Magnesium and phosphorus are normal. Blood cultures x2 are unremarkable. IMAGING: Abdominal x-ray demonstrates dilated loops of bowel, multiple air filled loops of small bowel are identified. There is paucity of gas. ASSESSMENT: 1. Ileus, post-operative. 2. Acute kidney injury secondary to profound dehydration, improving. 3. Colon cancer, status post colon resection. PLAN: The patient will continue hydration. I agree with changing fluids overt to half normal saline. We will watch the potassium and make certain that this does not need to be further modified over the ensuing days. We will continue empiric antibiotic coverage with Zosyn. NG tube remains to suction. Likely small bowel follow through tomorrow if things do not improve. His lactic acid is down trending and will not be repeated. From my perspective, he is stable for transition out of the ICU to the surgical unit. We will get physical therapy involved and I will give him a couple doses of Ativan to see if this helps with his hiccups. MTDD
--- NOTE | 2016-12-04 11:13 | PDOC.PN ---
- Subjective Encounter Start Date: 12/04/16 Encounter Start Time: 11:09 Subjective: NGT to suctin, continuing hiccups - Objective Resuscitation Status: Resuscitation Status FULL:Full Resuscitation MAR Reviewed: Yes Vital Signs & Weight: Vital Signs (12 hours) Temp Pulse Resp BP Pulse Ox 12/04/16 07:54 98.9 F 97 21 H 100 12/04/16 07:01 98.4 F 93 18 129/73 100 12/04/16 03:36 98.9 F 97 21 H 130/75 100 12/04/16 00:11 98.3 F 88 24 H 124/70 97 Weight Admit Weight 258 lb 12.8 oz Weight 258 lb 12.8 oz I&O: 12/03/16 12/04/16 12/05/16 06:59 06:59 06:59 Intake Total 450 5150 Output Total 1650 5900 Balance -1200 -750 Result Diagrams: 12/04/16 04:01 12/04/16 04:01 Additional Labs: Accuchecks 12/04/16 12/03/16 12/03/16 06:12 23:46 17:54 POC Glucose 186 H 232 H 199 H 12/03/16 12:15 POC Glucose 166 H Radiology Reviewed by me: Yes (Abd XR- SBO) Phys Exam - Physical Examination Respiratory: clear to auscultation bilateral Cardiovascular: RRR, no significant murmur distended, tympanitic, scant BS Musculoskeletal: edema present Dx/Plan (1) Bowel obstruction Code(s): K56.609 - UNSP INTESTNL OBST, UNSP TO PARTIAL VERSUS COMPLETE OBST Status: Acute Qualifiers: Intestinal obstruction extent: complete (2) DM type 2 (diabetes mellitus, type 2) Status: Acute Qualifiers: Diabetes mellitus complication status: with kidney complications Diabetes mellitus complication detail: with other kidney complication Diabetes mellitus terminal press operator insulin use: without prison use Qualified Code(s): E11.29 - Type 2 diabetes mellitus with other diabetic kidney complication (3) Acute renal failure Status: Acute Qualifiers: Acute renal failure type: unspecified Qualified Code(s): N17.9 - Acute kidney failure, unspecified (4) Lactic acid acidosis Code(s): E87.2 - ACIDOSIS Status: Acute (5) HTN (hypertension) Code(s): I10 - ESSENTIAL (PRIMARY) HYPERTENSION Status: Acute Qualifiers: Hypertension type: essential hypertension Qualified Code(s): I10 - Essential (primary) hypertension - Plan renal fcn improving with iv fluids, cont same -: disuss with Dr Houser -: cont accu/ss * .
[2016-12-04] MEDS: Lorazepam 2 MG/ML VIAL SLOW IVP PRN ×2 (11:38→20:28)
--- NOTE | 2016-12-04 11:55 | PRG ---
DATE OF SERVICE: 12/04/2016 SUBJECTIVE: Mr. Sherwood has no complaints today. The nurses say he was confused at times last nig ht, pulled his NG tube out, it has now been replaced. He is denying pain. PHYSICAL EXAMINATION: VITAL SIGNS: Blood pressure 108/68, pulse 73, respirations 18. He is afebrile. Urine output is 85 0 and he is voiding regularly. NG output has dropped down, it was 850 for the last shift, 3600 on i nitial placement. ABDOMEN: His abdomen is soft, it is distended. He has occasional bowel sounds. No guarding, rebou nd. His midline wound is healing well as are all laparoscopic incisions. LABORATORY: White blood cell count is 9, hemoglobin 11, platelet count is 333. His creatinine toda y is down to 1.69, potassium 3.5. Plain view of abdomen this morning reveals air in the small bowel and colon consistent with ileus. ASSESSMENT: Recurrent postop ileus secondary to medical comorbidities. PLAN: Continue supportive care. If no bowel function in the next 24-[address] a PICC line and start TPN. I do not think he needs surgical revision. There is no evidence of leakage on the CT scan and discuss with Dr. Portillo. His plain film clearly shows an air filled transverse colon making small-bowel obstruction at the anastomosis less likely. We will continue to follow.
[2016-12-04] MEDS: Ondansetron HCl/PF 4 MG/2 ML Vial IVP PRN (20:29)
[2016-12-05] MEDS: Piperacillin/Tazobactam 3.375 GM in Sodium Chloride 0.9% 100 ML IVPB SCH ×4 (02:56→21:57)
[2016-12-05] MEDS: Lorazepam 2 MG/ML VIAL SLOW IVP PRN (02:56)
[2016-12-05 05:20] LABS: Anion Gap 12 mmol/L (10-20); BUN (Urea Nitrogen) 19 mg/dL (8.4-25.7); Calc. Creatinine Clearance 78 mL/min (70-130); Calcium 10.1 mg/dL (7.8-10.44); Carbon Dioxide 27 mmol/L (23-31); Chloride 111 mmol/L (98-107); Estimated GFR-MDRD 60
[2016-12-05 05:47] LABS: Band 21 % (5-11); Mean Platelet Volume 8.1 fL (7.4-10.4); Metamyelocyte 5 % (0-0); Neutrophil 40 % (42-75); Reactive Lymphocytes 1 % (0-10); Red Blood Cell (RBC) Count 3.94 mill/uL (4.70-6.10); White Blood Cell (WBC) Count 12.6 thou/uL (4.8-10.8)
--- NOTE | 2016-12-05 09:06 | PDOC.PN ---
- Subjective Encounter Start Date: 12/05/16 Encounter Start Time: 09:03 Subjective: no pain, NGT in place, no BM - Objective Resuscitation Status: Resuscitation Status FULL:Full Resuscitation MAR Reviewed: Yes Vital Signs & Weight: Vital Signs (12 hours) Temp Pulse Resp BP Pulse Ox 12/05/16 08:00 97.6 F 83 16 127/78 93 L 12/05/16 03:53 99.7 F H 87 20 119/71 92 L 12/05/16 00:00 98.0 F 93 19 134/72 91 L Weight Admit Weight 258 lb 12.8 oz Weight 258 lb 12.8 oz I&O: 12/04/16 12/05/16 12/06/16 06:59 06:59 06:59 Intake Total 5150 1600 Output Total 5900 2975 Balance -750 1375 Result Diagrams: 12/05/16 04:33 12/05/16 04:33 Additional Labs: Accuchecks 12/05/16 12/04/16 12/04/16 05:27 19:54 18:20 POC Glucose 172 H 167 H 162 H 12/04/16 11:34 POC Glucose 172 H Phys Exam - Physical Examination Constitutional: NAD Neck: no JVD Respiratory: clear to auscultation bilateral Cardiovascular: RRR, no significant murmur Gastrointestinal: soft, non-tender, no distention Musculoskeletal: no edema Dx/Plan (1) Bowel obstruction Code(s): K56.609 - UNSP INTESTNL OBST, UNSP TO PARTIAL VERSUS COMPLETE OBST Status: Acute Qualifiers: Intestinal obstruction extent: complete (2) DM type 2 (diabetes mellitus, type 2) Status: Acute Qualifiers: Diabetes mellitus complication status: with kidney complications Diabetes mellitus complication detail: with other kidney complication Diabetes mellitus joint terminal attack controller insulin use: without joint terminal attack controller use Qualified Code(s): E11.29 - Type 2 diabetes mellitus with other diabetic kidney complication (3) Acute renal failure Status: Acute Qualifiers: Acute renal failure type: unspecified Qualified Code(s): N17.9 - Acute kidney failure, unspecified (4) Lactic acid acidosis Code(s): E87.2 - ACIDOSIS Status: Acute (5) HTN (hypertension) Code(s): I10 - ESSENTIAL (PRIMARY) HYPERTENSION Status: Acute Qualifiers: Hypertension type: essential hypertension Qualified Code(s): I10 - Essential (primary) hypertension - Plan agree with need for TPN if no rapid reolution of ileus/sbo -: cont accu ss -: rpt lactic acid level in am -: cont parenteral BP control * .
[2016-12-05] MEDS: Heparin 5,000 UNITS/ML VIAL SC SCH ×2 (09:46→21:56)
[2016-12-05] MEDS: Pantoprazole 40 MG VIAL IVP SCH (09:46)
[2016-12-05] MEDS: D5 1/2 NS w/20 mEq KCL 1,000 ML IV SCH ×2 (12:14→22:01)
[2016-12-05] MEDS: D5 1/2 NS w/40 mEq KCL 1,000 ML IV SCH (12:15)
--- NOTE | 2016-12-05 12:16 | PRG ---
DATE OF SERVICE: 12/05/2016 SERVICE: Pulmonary Medicine. INTERVAL HISTORY: The patient is doing fine from a cardiovascular and respiratory standpoint. He is breathing comfortably. He denies having any abdominal discomfort. His hiccups are much improved, albeit temporarily with the Ativan. That being said, he was able to get some consolidated rest last night. He has been up into a chair, and walking with physical therapy. PHYSICAL EXAMINATION: VITAL SIGNS: Afebrile, pulse 64, blood pressure 146/99, respirations 14, saturation 95% on room air. GENERAL: Patient is awake and alert, in no apparent distress. LUNGS: Excellent air entry. There is no prolonged expiratory phase, wheezing, rhonchi or crackles. HEART: Normal rate, regular. ABDOMEN: Soft, nontender, nondistended. Bowel sounds positive. MUSCULOSKELETAL: No cyanosis or clubbing. No pitting in the bilateral lower extremities. NEUROLOGIC: Grossly nonfocal. LABORATORY DATA: WBC 12.6, band count is decreasing to 21%. Total neutrophil count is actually improving. Hemoglobin and platelet counts remain normal. Sodium 146, potassium 3.8 and chloride 111. Creatinine down trending to 1.40. Basic metabolic profile is otherwise unremarkable. Urinalysis is remarkable for red blood cells and white blood cells, but otherwise nitrites are negative. Blood cultures x2 are negative. ASSESSMENT: 1. Ileus, post operative. 2. Acute kidney injury secondary to profound dehydration, resolved. 3. Colon cancer, status post colon resection. 4. Hiccups, improved with a benzodiazepine. PLAN: I will switch the fluids over to D5 water. Continue empiric antibiotics. Pulmonary Critical Care will sign off at this time. If there are any questions or concerns moving forward, please give me a phone call. NICHOLAS
--- NOTE | 2016-12-05 15:10 | PRG ---
DATE OF SERVICE: 12/05/2016 SUBJECTIVE: Mr. Sherwood feels better. Hiccups are improved on some Ativan. Denies abdominal pain . PHYSICAL EXAMINATION: VITAL SIGNS: Blood pressure is 146/99, pulse is 64. He is afebrile. Multiple voids. ABDOMEN: Remains distended with decreased bowel sounds. The NG output is down. ASSESSMENT: 1. Postoperative ileus secondary to medical comorbidities. 2. Acute tubular necrosis improved likely secondary to dehydration. PLAN: Continue NG tube for now. If not markedly improved tomorrow, we will have to place a PICC li ne and start TPN.
[2016-12-06] MEDS: D5 1/2 NS w/20 mEq KCL 1,000 ML IV SCH (03:38)
[2016-12-06] MEDS: Piperacillin/Tazobactam 3.375 GM in Sodium Chloride 0.9% 100 ML IVPB SCH ×4 (03:38→21:14)
[2016-12-06 06:10] LABS: Anion Gap 13 mmol/L (10-20); BUN (Urea Nitrogen) 16 mg/dL (8.4-25.7); Calc. Creatinine Clearance 81 mL/min (70-130); Calcium 9.8 mg/dL (7.8-10.44); Carbon Dioxide 27 mmol/L (23-31); Chloride 113 mmol/L (98-107); Estimated GFR-MDRD 63
--- NOTE | 2016-12-06 06:39 | PRG ---
DATE OF SERVICE: 12/05/2016 SUBJECTIVE: The patient was seen and examined and noted with the following vital signs. OBJECTIVE: VITAL SIGNS: Afebrile with temperature of 98.3, pulse 70, respiratory rate of 20, O2 sat of 94%, bl ood pressure 163/88. HEENT EXAMINATION: Unremarkable with moist ral mucosa. CARDIOVASCULAR SYSTEM: First and second heart sounds were heard. RESPIRATORY SYSTEM: Clear to auscultation. DIGESTIVE SYSTEM: Revealed a distended abdomen. EXTREMITIES: No peripheral edema. SKIN EXAMINATION: No new gross rash. LYMPHATICS: No peripheral lymphadenopathy. IMPRESSION: 1. Acute kidney injury seems to be improving. 2. Mild hypernatremia in the context of free water deficit. 3. ileus, status post . PLAN: 1. We will increase free water intake and adjust patient's IV fluids. 2. Continue renal supportive measures. 3. Further managment to be dependent on the clinical course.
[2016-12-06 07:00] LABS: Band 4 % (5-11); Hematocrit 35.6 % (42.0-52.0); Hypochromia SLIGHT = 6-15 cells (100X) (0-5/hpf); Mean Platelet Volume 7.9 fL (7.4-10.4); Myelocyte 1 % (0-0); Neutrophil 60 % (42-75); Nucleated RBC 1 % (0)
[2016-12-06] MEDS: Pantoprazole 40 MG VIAL IVP SCH (07:59)
[2016-12-06] MEDS: Heparin 5,000 UNITS/ML VIAL SC SCH ×2 (07:59→21:15)
--- NOTE | 2016-12-06 10:24 | PDOC.PN ---
- Subjective Encounter Start Date: 12/06/16 Encounter Start Time: 10:22 Subjective: small amount stool on bed, no nausea,vomiting - Objective Resuscitation Status: Resuscitation Status FULL:Full Resuscitation MAR Reviewed: Yes Vital Signs & Weight: Vital Signs (12 hours) Temp Pulse Resp BP Pulse Ox 12/06/16 08:00 97.8 F 70 20 134/84 93 L 12/06/16 00:00 98.4 F 76 22 H 160/75 H 95 Weight Admit Weight 258 lb 12.8 oz Weight 258 lb 12.8 oz I&O: 12/05/16 12/06/16 12/07/16 06:59 06:59 06:59 Intake Total 1600 1400 Output Total 2975 2100 Balance -1375 -700 Result Diagrams: 12/06/16 04:52 12/06/16 04:52 Additional Labs: Accuchecks 12/06/16 12/05/16 12/05/16 06:06 23:52 18:28 POC Glucose 196 H 166 H 161 H 12/05/16 11:47 POC Glucose 167 H Phys Exam - Physical Examination Constitutional: NAD Neck: no JVD Respiratory: clear to auscultation bilateral Cardiovascular: RRR, no significant murmur distended, nontender, tympanitic, quiet Musculoskeletal: edema present Dx/Plan (1) Bowel obstruction Code(s): K56.609 - UNSP INTESTNL OBST, UNSP TO PARTIAL VERSUS COMPLETE OBST Status: Acute Qualifiers: Intestinal obstruction extent: complete (2) DM type 2 (diabetes mellitus, type 2) Status: Acute Qualifiers: Diabetes mellitus complication status: with kidney complications Diabetes mellitus complication detail: with other kidney complication Diabetes mellitus long term care administrator insulin use: without long term care administrator use Qualified Code(s): E11.29 - Type 2 diabetes mellitus with other diabetic kidney complication (3) Acute renal failure Status: Acute Qualifiers: Acute renal failure type: unspecified Qualified Code(s): N17.9 - Acute kidney failure, unspecified (4) Lactic acid acidosis Code(s): E87.2 - ACIDOSIS Status: Acute (5) HTN (hypertension) Code(s): I10 - ESSENTIAL (PRIMARY) HYPERTENSION Status: Acute Qualifiers: Hypertension type: essential hypertension Qualified Code(s): I10 - Essential (primary) hypertension (6) Hypernatremia Code(s): E87.0 - HYPEROSMOLALITY AND HYPERNATREMIA Status: Acute - Plan no resolution of ileus/obstruction yet -: NG clamped, cont NPO, iv fluids -: decrease Na in iv fluids -: family appears discontented, declined to discuss * .
[2016-12-06] MEDS: Lorazepam 2 MG/ML VIAL SLOW IVP PRN (11:15)
[2016-12-06] MEDS ORDERED: Heparin 1,000 UNITS/ML VIAL ONE (15:15)
--- NOTE | 2016-12-06 15:18 | SPC ---
PICC LINE PLACEMENT: HISTORY: Patient in need of long-term IV TPN. RADIATION DOSIMETRY: 2.4 minutes of fluoroscopy and DAP of 14.3 uGy*\S\cm2. TECHNIQUE: After informed consent was obtained, the left arm was prepped and draped in the usual sterile manner . Left brachial vein was localized utilizing fluoroscopic guidance and some intravenous contrast. A small dermatotomy was made. The vein was accessed using a 22 gauge needle. A .018 guide wire was placed. A 5 [place] peel-away sheath was placed over the wire. The double-lumen PICC line was cut to 50 cm in length and placed with the distal tip at the right atrium. The position of this was con firmed using fluoroscopy. IMPRESSION: Successful placement of a left arm PICC line. POS: [facility]
[2016-12-06] MEDS ORDERED: DEXTROSE IV SCH (22:00)
[2016-12-06] MEDS ORDERED: MULTITRACE IV SCH (22:00)
[2016-12-06] MEDS ORDERED: MULTIVITAMINS IV SCH (22:00)
[2016-12-06] MEDS ORDERED: [UNRECOGNIZED DRUG - OTHER] IV SCH (22:00)
[2016-12-06] MEDS ORDERED: FAT EMULSION IV SCH (22:00)
[2016-12-06] MEDS: FAT EMULSION IV SCH ×9 (22:21)
[2016-12-06] MEDS: POTASSIUM PHOSPHATE IV SCH ×9 (22:21)
[2016-12-06] MEDS: POTASSIUM ACETATE IV SCH ×9 (22:21)
[2016-12-06] MEDS: [UNRECOGNIZED DRUG - OTHER] IV SCH ×9 (22:21)
[2016-12-07] MEDS: Lorazepam 2 MG/ML VIAL SLOW IVP PRN (00:49)
[2016-12-07] MEDS: HumaLOG 300 UNITS/3 ML VIAL SC PRN ×3 (00:50→15:47)
--- NOTE | 2016-12-07 02:42 | PRG ---
DATE OF SERVICE: 12/06/2016 SUBJECTIVE: The patient was seen and examined because of the NG tube which is draining widely becau se of gastric contents. PHYSICAL EXAMINATION: VITAL SIGNS: Afebrile with temperature 98.3, pulse 87, respiratory rate 18, O2 sat 95%, blood press ure 161/93. HEENT: Unremarkable with moist oral mucosa. NECK: Supple. No conjunctival injection or icterus. CARDIOVASCULAR: First and second heart sounds were heard. RESPIRATORY: Clear to auscultation. DIGESTIVE: Revealed a distended abdomen with equivocal bowel sounds. EXTREMITIES: No peripheral edema. SKIN: No new gross rash. LYMPHATICS: No peripheral lymphadenopathy. LABORATORY INVESTIGATIONS: None. IMPRESSION: 1. Acute on chronic kidney disease, which is much improved. 2. Hypernatremia. PLAN: 1. We will continue with free water repletion. 2. Continue renal supportive measures. 3. Further management to be dependent on the clinical course.
[2016-12-07] MEDS: Piperacillin/Tazobactam 3.375 GM in Sodium Chloride 0.9% 100 ML IVPB SCH ×4 (03:12→20:29)
[2016-12-07 05:35] LABS: Anion Gap 12 mmol/L (10-20); BUN (Urea Nitrogen) 13 mg/dL (8.4-25.7); Calc. Creatinine Clearance 83 mL/min (70-130); Calcium 9.5 mg/dL (7.8-10.44); Carbon Dioxide 27 mmol/L (23-31); Chloride 112 mmol/L (98-107); Cholesterol 70 mg/dl (< 200 Desired); Estimated GFR-MDRD 64; LDL Cholesterol, Calculated 15 mg/dL; Magnesium 1.9 mg/dL (1.6-2.6); Phosphorus 2.3 mg/dL (2.3-4.7)
[2016-12-07 07:15] LABS: Band 12 % (5-11); Hematocrit 36.7 % (42.0-52.0); Mean Platelet Volume 7.9 fL (7.4-10.4); Metamyelocyte 1 % (0-0); Myelocyte 2 % (0-0); Neutrophil 47 % (42-75); Reactive Lymphocytes 1 % (0-10); Red Blood Cell (RBC) Count 4.03 mill/uL (4.70-6.10); White Blood Cell (WBC) Count 10.3 thou/uL (4.8-10.8)
--- NOTE | 2016-12-07 08:19 | PRG ---
DATE OF SERVICE: 12/07/2016 Mr. Sherwood is doing better. He is requesting ice chips. He pulled his NG output last night. It was replaced. PHYSICAL EXAMINATION: VITAL SIGNS: He is afebrile, vital signs are stable. NG output is down somewhat, it has been 900 f or the shift, much less than it was on presentation, he has multiple voids. No bowel movement. ABDOMEN: Soft, less distended, but he does not have much for bowel sounds. LABORATORY DATA: White cell count is 10 with a normal differential, hemoglobin 11, creatinine 1.32. ASSESSMENT: Resolving postoperative ileus. PLAN: Allow ice chips. I really think he is 24-48 hours away from having better bowel function. E ncouraged ambulation.
[2016-12-07] MEDS: Pantoprazole 40 MG VIAL IVP SCH (09:55)
[2016-12-07] MEDS: Heparin 5,000 UNITS/ML VIAL SC SCH ×2 (10:03→20:30)
--- NOTE | 2016-12-07 15:48 | PDOC.PN ---
- Subjective Encounter Start Date: 12/07/16 Encounter Start Time: 11:00 -: old records requested/rev Subjective: no gas nor BM yet; no abd pain, no nausea - Objective Resuscitation Status: Resuscitation Status FULL:Full Resuscitation Vital Signs & Weight: Vital Signs (12 hours) Temp Pulse Resp BP BP Pulse Ox 12/07/16 15:24 97.6 F 83 14 146/79 H 96 12/07/16 11:10 97.5 F L 81 14 151/94 H 93 L 12/07/16 08:00 97.5 F L 81 14 12/07/16 07:45 98.0 F 74 22 H 153/85 H 97 12/07/16 04:30 94 L 12/07/16 04:04 98.2 F 70 20 94 L Weight Admit Weight 258 lb 12.8 oz Weight 258 lb 12.8 oz I&O: 12/06/16 12/07/16 12/08/16 06:59 06:59 06:59 Intake Total 1400 1400 Output Total 2100 2650 Balance -700 -1250 Result Diagrams: 12/07/16 04:45 12/07/16 04:45 Additional Labs: Accuchecks 12/07/16 12/07/16 12/07/16 15:26 11:02 05:46 POC Glucose 274 H 215 H 212 H 12/07/16 12/06/16 00:04 18:01 POC Glucose 210 H 150 H Phys Exam - Physical Examination Constitutional: NAD ambulating in hallway HEENT: PERRLA NGT clamped; no aspirate in tube Respiratory: no wheezing, no rales, no rhonchi, clear to auscultation bilateral Cardiovascular: RRR, no significant murmur Gastrointestinal: soft, non-tender, no distention no bowel sounds Musculoskeletal: no edema, pulses present Neurological: non-focal, normal sensation, moves all 4 limbs Psychiatric: normal affect, A&O x 3 Skin: no rash Dx/Plan (1) Bowel obstruction Code(s): K56.609 - UNSP INTESTNL OBST, UNSP TO PARTIAL VERSUS COMPLETE OBST Status: Acute Qualifiers: Intestinal obstruction type: other intestinal obstruction Intestinal obstruction extent: complete Qualified Code(s): K56.691 - Other complete intestinal obstruction Comment: postoperative ileus, appreciate surgery input. No traditional signs of bowel function return but appears in NAD, comfortable. (2) Acute renal failure Status: Acute Qualifiers: Acute renal failure type: unspecified Qualified Code(s): N17.9 - Acute kidney failure, unspecified Comment: stable. per nephro (3) DM type 2 (diabetes mellitus, type 2) Status: Acute Qualifiers: Diabetes mellitus complication status: with kidney complications Diabetes mellitus complication detail: with other kidney complication Diabetes mellitus terminal manager insulin use: without terminal manager use Qualified Code(s): E11.29 - Type 2 diabetes mellitus with other diabetic kidney complication Comment: exacerbated by TPN. adjust insulin in TPN formulation (4) HTN (hypertension) Code(s): I10 - ESSENTIAL (PRIMARY) HYPERTENSION Status: Chronic Qualifiers: Hypertension type: essential hypertension Qualified Code(s): I10 - Essential (primary) hypertension Comment: exacerbated by holding home antihypertensive meds and relying on prn dosing. Will add low dose scheduled regimen with holding parameters. (5) Colon cancer Code(s): C18.9 - MALIGNANT NEOPLASM OF COLON, UNSPECIFIED Status: Chronic Qualifiers: Colon location: ascending Qualified Code(s): C18.2 - Malignant neoplasm of ascending colon Comment: h/o right hemicolectomy 11/30/16 - Plan cont current plan of care, plan discussed w/ family cont medical management until bowel function returns * .
[2016-12-07] MEDS ORDERED: Metoprolol Tartrate 5 MG/5 ML VIAL IVP SCH (16:00)
[2016-12-07] MEDS ORDERED: HumaLOG 300 UNITS/3 ML VIAL SC PRN (16:05)
[2016-12-07] MEDS ORDERED: Dextrose 50% Abboject 50 ML SYRINGE SLOW IVP PRN (16:05)
[2016-12-07] MEDS ORDERED: Dextrose 5% in Water 1,000 ML IV PRN (16:05)
[2016-12-07] MEDS ORDERED: Insulin Regular 300 UNITS/3 ML VIAL SC SCH (16:15)
[2016-12-07] MEDS: Enalaprilat Dihydrate 1.25 MG/ML VIAL SLOW IVP SCH (20:29)
[2016-12-07] MEDS: POTASSIUM PHOSPHATE IV SCH ×9 (22:22)
[2016-12-07] MEDS: FAT EMULSION IV SCH ×9 (22:22)
[2016-12-07] MEDS: [UNRECOGNIZED DRUG - OTHER] IV SCH ×9 (22:22)
[2016-12-07] MEDS: POTASSIUM ACETATE IV SCH ×9 (22:22)
--- NOTE | 2016-12-07 22:29 | PRG ---
DATE OF SERVICE: 12/07/2016 SUBJECTIVE: The patient was seen and examined with no new complaint with NG tube is still in place with the following vital signs. OBJECTIVE: VITAL SIGNS: Afebrile with temperature 97.5, pulse 81, respiratory rate of 14, O2 sat 93%, blood pr essure 151/94. HEENT: Unremarkable with moist oral mucosa. CARDIOVASCULAR: First and second heart sounds were heard. RESPIRATORY: Clear to auscultation anteriorly. DIGESTIVE: Revealed an obese abdomen with positive bowel sounds. EXTREMITIES: No peripheral edema. IMPRESSION: 1. . 2. Acute on chronic kidney disease, much improved. 3. Hypernatremia. PLAN: Further management will be dependent on the clinical course. We will continue renal supporti ve measures. We will continue free water repletion.
[2016-12-08] MEDS: Enalaprilat Dihydrate 1.25 MG/ML VIAL SLOW IVP SCH ×4 (01:03→21:56)
[2016-12-08] MEDS: Lorazepam 2 MG/ML VIAL SLOW IVP PRN (01:24)
[2016-12-08] MEDS: Piperacillin/Tazobactam 3.375 GM in Sodium Chloride 0.9% 100 ML IVPB SCH ×4 (03:24→21:57)
[2016-12-08 05:55] LABS: Anion Gap 10 mmol/L (10-20); BUN (Urea Nitrogen) 17 mg/dL (8.4-25.7); Calc. Creatinine Clearance 94 mL/min (70-130); Calcium 9.6 mg/dL (7.8-10.44); Carbon Dioxide 27 mmol/L (23-31); Chloride 110 mmol/L (98-107); Estimated GFR-MDRD 75; Magnesium 1.9 mg/dL (1.6-2.6); Phosphorus 2.1 mg/dL (2.3-4.7)
[2016-12-08 06:21] LABS: Band 1 % (5-11); Hematocrit 33.2 % (42.0-52.0); Mean Platelet Volume 8.5 fL (7.4-10.4); Neutrophil 70 % (42-75); Red Blood Cell (RBC) Count 3.65 mill/uL (4.70-6.10); White Blood Cell (WBC) Count 9.2 thou/uL (4.8-10.8)
[2016-12-08] MEDS ORDERED: Insulin Detemir 100 UNITS/ML 20 UNITS in Pre-Filled Syringe 1 EACH SC SCH (08:00)
--- NOTE | 2016-12-08 08:32 | PRG ---
DATE OF SERVICE: 12/08/2016 SUBJECTIVE: The patient seen and examined at bedside. He is still sleeping. His significant other is in the room and she is awake and gives me all information. Apparently he got up this morning an d he walked with her around the [place]. He does not have complaint of any abdominal pain. PHYSICAL EXAMINATION: VITAL SIGNS: Blood pressure is 151/87, pulse is 77, temperature is 98.1, O2 saturation 92% on room air. LUNGS: Clear. HEART: S1, S2 normal, no S3, no S4. ABDOMEN: Post-incision wound is healing properly. Abdomen is somewhat distended. Bowel sounds are questionable. EXTREMITIES: No clubbing, cyanosis or edema. LABORATORY: Showed white count of 9.2, hemoglobin 10.6, hematocrit 33.2, platelet count is 265. So dium of 143, potassium 3.5, chloride 110, CO2 27, BUN 17, creatinine 1.16, glucose 286. Microbiolog y: Two blood cultures are negative. IMPRESSION: 1. Postop ileus, resolving, although the NG tube drained approximately 650 mL last night. This is managed per primary surgeon, Dr. Houser, NG tube is still in place. We will continue the NG tube s uctioning. 2. Uncontrolled diabetes secondary to TPN. We are going to start him on 20 units of Levemir subcut aneously q.24 this morning and I will continue his sliding scale which is moderate every 6 hours and coverage with short-acting Humulin. 3. Acute renal failure, resolving. 4. Hypertension, still hypertensive, will make some adjustments to his medications. 5. Colon cancer, status post right hemicolectomy 8 days ago. PLAN: As mentioned above, we will start him on long-acting insulin, Levemir 20 units subcutaneously every 24 hours. We will continue NG tube suctioning for now and will continue TPN. We will contin ue Accu-Cheks.
[2016-12-08] MEDS: Pantoprazole 40 MG VIAL IVP SCH (08:46)
[2016-12-08] MEDS: Heparin 5,000 UNITS/ML VIAL SC SCH ×2 (08:47→21:57)
--- NOTE | 2016-12-08 09:07 | PRG ---
DATE OF SERVICE: 12/08/2016 Mr. Sherwood sugars are higher now that we started TPN. Dr. Hanson with the Hospitalist has ma de some adjustments. The patient has no complaints, states that he is starting to pass some gas, bu t no bowel movement. PHYSICAL EXAMINATION: VITAL SIGNS: Blood pressure 151/87, he is afebrile, pulse 77, and O2 sat 97%. NG output is down wi th 650 for the last shift. ABDOMEN: Soft, minimally distended, no bowel sounds. All incisions are healing well. LABORATORY: White blood cell count is 9, hemoglobin 10, platelets are 265. Sodium 143, potassium 3 .5, creatinine is now normal at 1.16, glucose 342. ASSESSMENT: 1. Postop ileus prolonged. 2. History of colon cancer, status post a right colectomy, laparoscopic, T3 N0 MX. PLAN: Continue TPN, await resolution of ileus. Expect 24-48 more hours. I appreciate the hospital ists help in managing his comorbidities. Dr. Bashir covering for me tomorrow.
[2016-12-08] MEDS: Insulin Regular 300 UNITS/3 ML VIAL SC PRN ×3 (13:19→21:59)
[2016-12-08] MEDS: Ondansetron HCl/PF 4 MG/2 ML Vial IVP PRN (18:22)
[2016-12-08] MEDS: Insulin Detemir 100 UNITS/ML 20 UNITS in Pre-Filled Syringe 1 EACH SC SCH (21:57)
[2016-12-08] MEDS: [UNRECOGNIZED DRUG - OTHER] IV SCH ×9 (22:39)
[2016-12-08] MEDS: FAT EMULSION IV SCH ×9 (22:39)
[2016-12-08] MEDS: POTASSIUM ACETATE IV SCH ×9 (22:39)
[2016-12-08] MEDS: POTASSIUM PHOSPHATE IV SCH ×9 (22:39)
[2016-12-09] MEDS: Enalaprilat Dihydrate 1.25 MG/ML VIAL SLOW IVP SCH ×4 (02:25→18:37)
[2016-12-09] MEDS: Lorazepam 2 MG/ML VIAL SLOW IVP PRN (02:26)
[2016-12-09] MEDS: Insulin Regular 300 UNITS/3 ML VIAL SC PRN ×6 (02:27→22:49)
[2016-12-09] MEDS: Piperacillin/Tazobactam 3.375 GM in Sodium Chloride 0.9% 100 ML IVPB SCH ×4 (02:41→21:29)
[2016-12-09 05:45] LABS: Anion Gap 12 mmol/L (10-20); BUN (Urea Nitrogen) 18 mg/dL (8.4-25.7); Calc. Creatinine Clearance 105 mL/min (70-130); Calcium 9.6 mg/dL (7.8-10.44); Carbon Dioxide 24 mmol/L (23-31); Chloride 112 mmol/L (98-107); Estimated GFR-MDRD 85; Phosphorus 2.3 mg/dL (2.3-4.7)
[2016-12-09 06:24] LABS: Band 4 % (5-11); Hematocrit 33.8 % (42.0-52.0); Mean Platelet Volume 8.3 fL (7.4-10.4); Neutrophil 61 % (42-75); Red Blood Cell (RBC) Count 3.73 mill/uL (4.70-6.10); White Blood Cell (WBC) Count 9.6 thou/uL (4.8-10.8)
--- NOTE | 2016-12-09 06:44 | PRG ---
DATE OF SERVICE: 12/08/2016 SUBJECTIVE: Patient was seen and examined, seems to be doing much better, noted with the following vital signs. OBJECTIVE: VITAL SIGNS: Afebrile with temperature 97.1, pulse 76, respiratory rate 20, O2 saturation 97%, bloo d pressure of 170/89. HEENT: Unremarkable with moist oral mucosa. No conjunctival injection or icterus. NECK: Supple. CARDIOVASCULAR SYSTEM: First and second heart sounds were heard. RESPIRATORY SYSTEM: Clear to auscultation. DIGESTIVE SYSTEM: Reveals a distended abdomen. EXTREMITIES: No peripheral edema. IMPRESSION: 1. Acute kidney injury -- hemodynamically mediated which has improved. 2. Postoperative ileus. 3. Hypertension, which seems to be suboptimally controlled. PLAN: 1. Continue current renal supportive measures. 2. Antihypertensive adjustments to improve/optimize hemodynamics. 3. Further management to be dependent on the clinical course.
--- NOTE | 2016-12-09 08:25 | PRG ---
DATE OF SERVICE: 12/09/2016 SUBJECTIVE: The patient is seen and examined at the bedside. He is doing better. During this visi t, his is in his room. The patient is awake and able to answer my questions properly. He did not have any bowel movement yet. OBJECTIVE: VITAL SIGNS: Blood pressure is 151/73, pulse is 68, respiratory rate is 20, and O2 saturation 95% o n room air. HEAD: Atraumatic and normocephalic. EYES: PERRLA. Conjunctivae pink. His oral mucosa is somewhat dry. NECK: Supple, no lymphadenopathy. Thyroid is not palpable. LUNGS: Clear. HEART: S1 and S2 normal. No S3, no S4, no murmur. ABDOMEN: Soft, mildly distended. Bowel sounds present, no organomegaly. EXTREMITIES: No clubbing, cyanosis or edema. NEUROLOGIC: He is alert and oriented x4. There is no any sensorimotor deficit present. Cranial ne rves are intact. LABORATORY DATA: Showed white count of 9.6, hemoglobin 10.6, hematocrit 33.8, and platelet count is 263. Sodium of 144, potassium 3.6, chloride 112, BUN 18, CO2 24, creatinine 1.04. Glycemia is ran ging from 174-300. Microbiology, blood cultures negative x2. IMPRESSION: 1. Post-ileus resolving, nasogastric tube drained 1100 mL for the last [address] Houser will make decision whether he will continue on nasogastric tube and total parenteral nutrition today. We will start him on clear liquids. The patient did not have any bowel movement yet, but he has good peristalsis. 2. Uncontrolled diabetes secondary to total parenteral nutrition. We will continue his 20 units in the morning and 20 units in the evening of Levemir plus. He was changed to Accu-Cheks every 4 hour s last night since his glycemia was up to 300, but as soon as the decision is made today about stopp ing total parenteral nutrition and starting clear liquids, we will have to cut back on patient's ins ulin regimen and the nurse will notify me about Dr. Houser's making rounds, so I can discuss this w ith him. 3. Acute renal failure, resolved. 4. Hypertension, mildly hypertensive. We will start his p.o. antihypertensives as soon as he is st arted on clear liquids. 5. Colon cancer, status post right hemicolectomy. PLAN: As mentioned above, continue the regimen for now until decision is made whether he is going t o continue his TPN or not. We will continue his NG tube. We will continue also his DVT prophylaxis with 5000 units of heparin, regular.
[2016-12-09] MEDS: Pantoprazole 40 MG VIAL IVP SCH (08:35)
[2016-12-09] MEDS: Heparin 5,000 UNITS/ML VIAL SC SCH ×2 (08:36→21:31)
--- NOTE | 2016-12-09 11:29 | RAD ---
2 VIEWS ABDOMEN: Date: 12/09/16 COMPARISON: CT abdomen/pelvis dated 12/03/16. HISTORY: Ileus. FINDINGS: Single view of abdomen show multiple air-filled loops of small bowel. No free air is seen on upright examination. A NG tube is seen with its tip just within the stomach. The side port is in the distal esophagus. IMPRESSION: Multiple distended loops of small bowel may be secondary to small bowel obstruction versus ileus. POS: [facility]
[2016-12-09] MEDS: Metoclopramide HCl 10 MG/2 ML VIAL IVP PRN (12:16)
--- NOTE | 2016-12-09 17:48 | PRG ---
DATE OF SERVICE: 12/09/2016 SUBJECTIVE: The patient is currently in the hospital with a prolonged postoperative ileus and is cu rrently on TPN. The patient overnight denies any bowel movements or passing gas, also has no nausea . This morning, he states that his pain is being controlled and he has been ambulating back and for th to the bathroom and with physical therapy. OBJECTIVE: VITAL SIGNS: Temperature 97.7, heart rate 75, blood pressure 177/94, respirations are 18, oxygen sa turation is 97% on room air. GENERAL: The patient is resting comfortably, sitting in a chair. He is alert and oriented x3 and c onversant. LUNGS: Clear to auscultation bilaterally. ABDOMEN: Appears to be slightly distended with hypoactive bowel sounds and is nontender. LABORATORY DATA AND IMAGING: White blood cell count 9.6, hemoglobin 10.6, hematocrit 33.8, platelet s 263. Sodium 144, potassium 3.6, chloride 112, CO2 of 24, BUN 18, creatinine 1.04, glucose 197, ma gnesium 2.0, phosphorus 2.3. A 2-view of the abdomen shows multiple distended loops of small bowel may be secondary to small-bowel obstruction versus ileus. ASSESSMENT AND PLAN: Status post intraabdominal surgery with prolonged postoperative ileus. Plan will be to continue maximizing ambulation, being out of bed, decrease narcotic use and continue to follow the patient. The evaluation, examination, laboratory and radiographic findings were done with Dr. Bashir during rounds.
[2016-12-09] MEDS: Insulin Detemir 100 UNITS/ML 20 UNITS in Pre-Filled Syringe 1 EACH SC SCH (21:31)
[2016-12-09] MEDS: [UNRECOGNIZED DRUG - OTHER] IV SCH ×9 (22:49)
[2016-12-09] MEDS: POTASSIUM ACETATE IV SCH ×9 (22:49)
[2016-12-09] MEDS: FAT EMULSION IV SCH ×9 (22:49)
[2016-12-09] MEDS: POTASSIUM PHOSPHATE IV SCH ×9 (22:49)
[2016-12-10] MEDS: Enalaprilat Dihydrate 1.25 MG/ML VIAL SLOW IVP SCH ×4 (00:42→17:53)
[2016-12-10] MEDS: Piperacillin/Tazobactam 3.375 GM in Sodium Chloride 0.9% 100 ML IVPB SCH ×3 (03:13→16:08)
[2016-12-10] MEDS: Insulin Regular 300 UNITS/3 ML VIAL SC PRN ×2 (03:17→06:49)
[2016-12-10 05:31] LABS: #Eosinphils 0.2 thou/uL (0.0-0.7); #Lymphocytes 1.9 thou/uL (1.20-3.40); #Monocytes 0.6 thou/uL (0.11-0.59); %Basophils 0.2 % (0.0-1.0); %Eosinophils 1.6 % (0.0-10.0); %Lymphocytes 19.8 % (21.0-51.0); %Monocytes 5.7 % (0.0-10.0); Hematocrit 32.8 % (42.0-52.0); Mean Platelet Volume 8.2 fL (7.4-10.4); Red Blood Cell (RBC) Count 3.66 mill/uL (4.70-6.10); White Blood Cell (WBC) Count 9.6 thou/uL (4.8-10.8)
[2016-12-10 05:51] LABS: Anion Gap 8 mmol/L (10-20); BUN (Urea Nitrogen) 19 mg/dL (8.4-25.7); Calc. Creatinine Clearance 104 mL/min (70-130); Calcium 9.3 mg/dL (7.8-10.44); Carbon Dioxide 25 mmol/L (23-31); Chloride 110 mmol/L (98-107); Estimated GFR-MDRD 84; Magnesium 1.8 mg/dL (1.6-2.6)
--- NOTE | 2016-12-10 09:39 | PRG ---
DATE OF SERVICE: 12/10/2016 The patient was seen and examined, no new complaints. PHYSICAL EXAMINATION: VITAL SIGNS: Afebrile with temperature 97.8, pulse 68, respiratory rate 16, O2 sat 95%, blood press ure 168/97. HEENT: Unremarkable with moist oral mucosa. Neck is supple. No conjunctival injection or icterus. CARDIOVASCULAR: First and second heart sounds were heard. RESPIRATORY: Clear to auscultation. DIGESTIVE SYSTEM: Digestive system revealed a benign abdomen with positive bowel sounds, somewhat d istended. EXTREMITIES: No peripheral edema. LABORATORY: Showed a hemoglobin 10.4. Chemistry showed a creatinine of 1.05, BUN of 19, potassium 3.4. IMPRESSION: 1. Postoperative ileus. 2. Mild hypokalemia. 3. Acute kidney injury which has since resolved. PLAN: 1. Replete potassium. 2. Continue other renal supportive measures. 3. Further management to be dependent on the clinical course.
[2016-12-10] MEDS: Heparin 5,000 UNITS/ML VIAL SC SCH ×2 (09:57→20:39)
[2016-12-10] MEDS: Pantoprazole 40 MG VIAL IVP SCH (09:58)
--- NOTE | 2016-12-10 10:44 | PDOC.PN ---
- Subjective Encounter Start Date: 12/10/16 Encounter Start Time: 09:20 -: old records requested/rev Subjective: passed gas and bowel movement - Objective Resuscitation Status: Resuscitation Status FULL:Full Resuscitation MAR Reviewed: Yes Vital Signs & Weight: Vital Signs (12 hours) Temp Pulse Resp BP BP Pulse Ox 12/10/16 07:25 97.8 F 68 16 168/97 H 95 12/10/16 06:48 147/83 H 12/10/16 04:00 97 F L 72 16 147/83 H 97 12/10/16 00:42 147/70 H 12/10/16 00:00 98.5 F 86 16 147/70 H 93 L Weight Admit Weight 258 lb 12.8 oz Weight 258 lb 12.8 oz I&O: 12/09/16 12/10/16 12/11/16 06:59 06:59 06:59 Intake Total 1610 Output Total 4336 770 Balance -915 -997 Result Diagrams: 12/10/16 04:56 12/10/16 04:56 Additional Labs: Accuchecks 12/10/16 12/10/16 12/10/16 10:04 06:26 02:22 POC Glucose 210 H 245 H 236 H 12/09/16 12/09/16 12/09/16 22:03 19:19 18:13 POC Glucose 219 H 197 H 199 H 12/09/16 14:30 POC Glucose 230 H Phys Exam - Physical Examination Constitutional: NAD HEENT: PERRLA Neck: no JVD Respiratory: no wheezing, no rales, no rhonchi, clear to auscultation bilateral Cardiovascular: RRR, no significant murmur, no rub Gastrointestinal: soft, non-tender, no distention hypoactive bowel sounds Neurological: non-focal, normal sensation, moves all 4 limbs Psychiatric: normal affect, A&O x 3 Dx/Plan (1) DM type 2 (diabetes mellitus, type 2) Status: Chronic Qualifiers: Diabetes mellitus complication status: with kidney complications Diabetes mellitus complication detail: with other kidney complication Diabetes mellitus exterminator termite insulin use: without shelter use Qualified Code(s): E11.29 - Type 2 diabetes mellitus with other diabetic kidney complication Comment: exacerbated by TPN. As TPN expected to be discontinued by tomorrow am, will advise adjustment of insulin dosing once off TPN (2) Bowel obstruction Code(s): K56.609 - UNSP INTESTNL OBST, UNSP TO PARTIAL VERSUS COMPLETE OBST Status: Acute Qualifiers: Intestinal obstruction type: other intestinal obstruction Intestinal obstruction extent: complete Qualified Code(s): K56.691 - Other complete intestinal obstruction Comment: postoperative ileus, clinically resolving with passage of gas and bowel movement. d/w surgery, NGT removed today and will start on CLD with anticipation of discontinuation of TPN (3) HTN (hypertension) Code(s): I10 - ESSENTIAL (PRIMARY) HYPERTENSION Status: Chronic Qualifiers: Hypertension type: essential hypertension Qualified Code(s): I10 - Essential (primary) hypertension Comment: difficult managment due to NPO status; cont scheduled vasotec with holding parameters and prn hydralazine. Once able to demonstrate ability to tolerate PO intake, resume home medications. (4) Colon cancer Code(s): C18.9 - MALIGNANT NEOPLASM OF COLON, UNSPECIFIED Status: Chronic Qualifiers: Colon location: ascending Qualified Code(s): C18.2 - Malignant neoplasm of ascending colon Comment: h/o right hemicolectomy 11/30/16 (5) Acute renal failure Status: Resolved Qualifiers: Acute renal failure type: unspecified Qualified Code(s): N17.9 - Acute kidney failure, unspecified Comment: stable. per nephro - Plan cont current plan of care, out of bed/ambulate disposition: anticipate discharge once tolerating oral diet and cleared by -: surgery; perhaps 1-2 more days. * .
--- NOTE | 2016-12-10 11:18 | PRG ---
DATE OF SERVICE: 12/10/2016 SUBJECTIVE: Mr. Sherwood is doing quite well. He is now passing gas and has had a bowel movement. He is hungry. NG tube output is minimal. PHYSICAL EXAMINATION: VITAL SIGNS: Blood pressure 160/97, pulse 68, T-max 98.5. ABDOMEN: Soft with active bowel sounds. Wounds are healing without infection. LABORATORY DATA: White cell count is 9, hemoglobin 10, potassium 3.4, creatinine 1.05. ASSESSMENT: Resolving ileus. PLAN: Discontinue NG. Start clear liquids, full liquids tomorrow and then home on Saturday most savi rico
--- NOTE | 2016-12-10 16:29 | ULT ---
LEFT UPPER EXTREMITY VENOUS DOPPLER WITH SPECTRAL ANALYSIS AND COLOR FLOW EVALUATION: Date: 12-10-16 History: Patient with long-term PICC line in place in the left upper extremity. Patient now complain s of left arm pain. FINDINGS: Grayscale, color flow, doppler evaluation, and spectral analysis of the left upper extremity venous structures is performed with 2D imaging. There is normal lumen compressibility and flow seen in the left internal jugular vein with normal fl ow seen in the left subclavian vein. There is normal lumen compressibility and flow seen within the left upper extremity axillary and brachial veins with normal lumen compressibility and flow seen in the left upper extremity cephalic and basilic veins. There is normal flow seen within the visualized left radial and ulnar veins. Physical Therapy Aides Teacher notes visualization of the PICC line in the left brachial vein; although this is no t well delineated on the provided images. IMPRESSION: 1. No evidence of DVT involving the visualized deep venous structures left upper extremity. POS: [facility]
[2016-12-10] MEDS: Insulin Detemir 100 UNITS/ML 20 UNITS in Pre-Filled Syringe 1 EACH SC SCH (20:40)
[2016-12-11] MEDS: Enalaprilat Dihydrate 1.25 MG/ML VIAL SLOW IVP SCH ×2 (00:55→05:52)
[2016-12-11 06:29] LABS: #Eosinphils 0.1 thou/uL (0.0-0.7); #Lymphocytes 1.8 thou/uL (1.20-3.40); #Monocytes 0.6 thou/uL (0.11-0.59); #Neutrophils 6.2 thou/uL (1.40-6.50); %Basophils 0.4 % (0.0-1.0); %Eosinophils 1.1 % (0.0-10.0); %Monocytes 6.9 % (0.0-10.0); Hematocrit 33.6 % (42.0-52.0); Mean Platelet Volume 8.9 fL (7.4-10.4); Red Blood Cell (RBC) Count 3.75 mill/uL (4.70-6.10); White Blood Cell (WBC) Count 8.8 thou/uL (4.8-10.8)
[2016-12-11 06:48] LABS: Anion Gap 9 mmol/L (10-20); BUN (Urea Nitrogen) 13 mg/dL (8.4-25.7); Calc. Creatinine Clearance 121 mL/min (70-130); Calcium 9.4 mg/dL (7.8-10.44); Carbon Dioxide 25 mmol/L (23-31); Chloride 108 mmol/L (98-107); Estimated GFR-MDRD Greater than 90; Magnesium 1.7 mg/dL (1.6-2.6); Phosphorus 2.2 mg/dL (2.3-4.7)
[2016-12-11] MEDS: Heparin 5,000 UNITS/ML VIAL SC SCH ×2 (10:16→21:32)
[2016-12-11] MEDS: Pantoprazole 40 MG VIAL IVP SCH (10:37)
[2016-12-11] MEDS ORDERED: Potassium Chloride 20 MEQ TAB PO SCH (11:00)
[2016-12-11] MEDS: Insulin Regular 300 UNITS/3 ML VIAL SC PRN (11:49)
--- NOTE | 2016-12-11 12:24 | PDOC.PN ---
- Subjective Encounter Start Date: 12/11/16 Encounter Start Time: 09:00 Pt seen for followup re; bowel obstruction. denies chest pain, shortness of breath, fevers. Passed flatus, had BM. - Objective Resuscitation Status: Resuscitation Status FULL:Full Resuscitation MAR Reviewed: Yes Vital Signs & Weight: Vital Signs (12 hours) Temp Pulse Resp BP BP BP Pulse Ox 12/11/16 11:49 135/82 12/11/16 07:50 98.3 F 56 L 16 93/69 97 12/11/16 05:52 135/82 12/11/16 04:17 98.0 F 79 20 135/82 98 12/11/16 00:55 131/85 12/11/16 00:52 98.5 F 76 18 131/85 97 Weight Admit Weight 258 lb 12.8 oz Weight 258 lb 12.8 oz I&O: 12/10/16 12/11/16 12/12/16 06:59 06:59 06:59 Intake Total 1050 Output Total 770 885 Balance -770 165 Result Diagrams: 12/11/16 04:52 12/11/16 04:52 Additional Labs: Accuchecks 12/11/16 12/11/16 12/11/16 10:16 06:22 02:15 POC Glucose 161 H 103 99 12/10/16 12/10/16 12/10/16 22:40 18:32 14:18 POC Glucose 109 187 H 145 H Phys Exam - Physical Examination Obese HEENT: moist MMs Neck: supple Respiratory: clear to auscultation bilateral Cardiovascular: RRR Gastrointestinal: soft, non-tender, positive bowel sounds Neurological: moves all 4 limbs Psychiatric: normal affect Skin: no rash Dx/Plan (1) Bowel obstruction Code(s): K56.609 - UNSP INTESTNL OBST, UNSP TO PARTIAL VERSUS COMPLETE OBST Status: Acute Qualifiers: Intestinal obstruction type: other intestinal obstruction Intestinal obstruction extent: complete Qualified Code(s): K56.691 - Other complete intestinal obstruction (2) DM type 2 (diabetes mellitus, type 2) Status: Chronic Qualifiers: Diabetes mellitus complication status: with kidney complications Diabetes mellitus complication detail: with other kidney complication 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 Once able to demonstrate ability to tolerate PO intake, resume home medications. (4) Acute renal failure Status: Resolved Qualifiers: Acute renal failure type: unspecified Qualified Code(s): N17.9 - Acute kidney failure, unspecified - Plan plan discussed w/ family, out of bed/ambulate, DVT proph w/SCDs * . Pt is off of TPN now, starting clear fluid diet. Change PPI and vasotec to oral. Continue accuchecks, insulin sliding scale. Review of Systems - Review of Systems Constitutional: negative: Fever, Chills, Sweats, Weakness, Malaise Cardiovascular: negative: Chest Pain, Palpitations, Orthopnea, Paroxysmal Noc. Dyspnea, Edema, Light Headedness Gastrointestinal: negative: Nausea, Vomiting, Abdominal Pain, Diarrhea, Constipation, Melena, Hematochezia - Medications/Allergies Allergies/Adverse Reactions: Allergies Allergy/AdvReac Type Severity Reaction Status Date / Time No Known Allergies Allergy Verified 11/19/16 08:54 Medications: Current Medications Acetaminophen (Tylenol) 650 mg NC Q4H PRN PRN Reason: Headache/Fever or Mild Pain Albuterol/Ipratropium (Duoneb) 3 ml NEB Q6H PRN PRN Reason: SOB &/or Wheezing Artificial Tears (Tears Naturale) 0 drop EA EYE PRN PRN PRN Reason: Dry Eyes Dextrose/Water (Dextrose 50%) 25 gm SLOW IVP PRN PRN PRN Reason: Hypoglycemia Enalapril Maleate (Vasotec) 1.25 mg PO Q6HR [facility] Last Admin: 12/11/16 11:49 Dose: 1.25 mg Glucagon (Glucagon) 1 mg IM PRN PRN PRN Reason: Hypoglycemia Heparin Sodium (Porcine) (Heparin) 5,000 units SC BID [facility] Last Admin: 12/11/16 10:16 Dose: 5,000 units Hydralazine HCl (Apresoline) 10 mg SLOW IVP Q4H PRN PRN Reason: Systolic BP > 180 Dextrose/Water (D5w) 1,000 mls @ 0 mls/hr IV .Q0M PRN; As Directed PRN Reason: Hypoglycemia Insulin Detemir 20 units/ (Miscellaneous Medication) 0.2 mls @ 0 mls/hr [facility] Last Admin: 12/10/16 20:40 Dose: 0.2 mls Potassium Chloride 40 meq/ (Dextrose/Sodium Chloride) 1,020 mls @ 50 mls/hr IV .[id number] [facility] Last Admin: 12/11/16 04:53 Dose: Not Given Insulin Human Regular (Humulin R) 0 units SC .AGGRESSIVE SLIDING PRN; Protocol PRN Reason: AGGRESSIVE SLIDING SCALE Last Admin: 12/11/16 11:49 Dose: 3 unit Lorazepam (Ativan) 0.5 mg SLOW IVP Q6H PRN PRN Reason: Hiccups Last Admin: 12/09/16 02:26 Dose: 0.5 mg Metoclopramide HCl (Reglan) 10 mg IVP Q6H PRN PRN Reason: Nausea/Vomiting Last Admin: 12/09/16 12:16 Dose: 10 mg Mineral Oil/White Petrolatum (Eucerin Cream) 0 gm TOP BIDPRN PRN PRN Reason: Dry Skin Ondansetron HCl (Zofran) 4 mg IVP Q6H PRN PRN Reason: Nausea/Vomiting Last Admin: 12/08/16 18:22 Dose: 4 mg Pantoprazole Sodium (Protonix) 40 mg PO DAILY [facility] Potassium Chloride (K-Dur) 40 meq PO NOW [facility] Stop: 12/11/16 13:00 Last Admin: 12/11/16 11:49 Dose: 40 meq Sodium Chloride (Flush - Normal Saline) 10 ml IVF Q12HR [facility] Last Admin: 12/11/16 10:41 Dose: 10 ml Sodium Chloride (Flush - Normal Saline) 10 ml IVF PRN PRN PRN Reason: Saline Flush Last Admin: 12/11/16 10:41 Dose: 10 ml Sodium Chloride (Centre Nasal [place] 0.65%) 0 ml EA NARE QIDPRN PRN PRN Reason: Nasal Congestion
--- NOTE | 2016-12-11 12:40 | PRG ---
DATE OF SERVICE: 12/11/2016 The patient was seen and examined, seems to be doing much better. PHYSICAL EXAMINATION: VITAL SIGNS: Hemodynamically stable. HEENT: Unremarkable. CARDIOVASCULAR: First and second heart sounds were heard. RESPIRATORY SYSTEM: Clear to auscultation. DIGESTIVE SYSTEM: Revealed a benign abdomen. EXTREMITIES: No peripheral edema. SKIN: No new gross rash. LYMPHATICS: No peripheral lymphadenopathy. LABORATORY INVESTIGATIONS: Showed a hemoglobin of 10.6. Chemistry showed potassium of 3.3. IMPRESSION: 1. Postop ileus. 2. Acute on chronic kidney disease which seems to have improved. 3. Hypokalemia. PLAN: 1. Replete potassium. 2. Continue supportive measures. 3. Further management to be dependent on the clinical course.
[2016-12-11] MEDS: Insulin Detemir 100 UNITS/ML 20 UNITS in Pre-Filled Syringe 1 EACH SC SCH (21:33)
[2016-12-12 05:47] LABS: #Eosinphils 0.1 thou/uL (0.0-0.7); #Lymphocytes 1.4 thou/uL (1.20-3.40); #Monocytes 0.6 thou/uL (0.11-0.59); #Neutrophils 4.9 thou/uL (1.40-6.50); %Basophils 0.3 % (0.0-1.0); %Eosinophils 1.4 % (0.0-10.0); %Lymphocytes 20.6 % (21.0-51.0); Hematocrit 31.1 % (42.0-52.0); Mean Platelet Volume 8.7 fL (7.4-10.4); Red Blood Cell (RBC) Count 3.47 mill/uL (4.70-6.10)
[2016-12-12 06:00] LABS: Anion Gap 6 mmol/L (10-20); BUN (Urea Nitrogen) 10 mg/dL (8.4-25.7); Calc. Creatinine Clearance 119 mL/min (70-130); Calcium 9.1 mg/dL (7.8-10.44); Carbon Dioxide 28 mmol/L (23-31); Chloride 109 mmol/L (98-107); Estimated GFR-MDRD Greater than 90; Magnesium 1.7 mg/dL (1.6-2.6); Phosphorus 2.3 mg/dL (2.3-4.7)
--- NOTE | 2016-12-12 07:56 | PRG ---
DATE OF SERVICE: 12/12/2016 SUBJECTIVE: Mr. Sherwood has no complaints this morning. He denies pain, no nausea. He is due for GI soft diet this morning for breakfast. PHYSICAL EXAMINATION: VITAL SIGNS: Afebrile. Vital signs are stable. ABDOMEN: Soft. Wounds are healing well. He has active bowel sounds. LABORATORY: White blood cell count is 7, hemoglobin 10, creatinine is back to normal 0.89. ASSESSMENT: 1. History of T3 N0 MX right colon cancer, status post right hemicolectomy complicated by prolonged postoperative ileus, now ready for discharge. 2. Acute tubular necrosis secondary to severe postop dehydration, resolved. PLAN: Home today. Follow up with me in 2 weeks. He has already seen Dr. Matthews. I recommended t hey see her back in 2-4 weeks as well for final Oncology recommendations.
[2016-12-12 08:21] VITALS: BP 138/84; TEMP 98.2
[2016-12-12] MEDS: Heparin 5,000 UNITS/ML VIAL SC SCH (09:42)
--- NOTE | 2016-12-12 09:58 | PDOC.PN ---
- Subjective Encounter Start Date: 12/12/16 Encounter Start Time: 07:10 -: old records requested/rev Patient seen and examined. No new complaints. No overnight events - Objective Resuscitation Status: Resuscitation Status FULL:Full Resuscitation MAR Reviewed: Yes Vital Signs & Weight: Vital Signs (12 hours) Temp Pulse Resp BP BP Pulse Ox 12/12/16 07:30 98.2 F 61 12 138/84 95 12/12/16 06:23 143/90 H 12/12/16 04:40 98.0 F 88 20 143/90 H 98 12/12/16 00:41 98.7 F 79 18 135/73 97 12/12/16 00:29 135/73 Weight Admit Weight 258 lb 12.8 oz Weight 250 lb I&O: 12/11/16 12/12/16 12/13/16 06:59 06:59 06:59 Intake Total 1050 500 Output Total 885 1375 Balance 165 -875 Result Diagrams: 12/12/16 05:02 12/12/16 05:02 Additional Labs: Accuchecks 12/12/16 12/11/16 12/11/16 05:39 20:35 16:01 POC Glucose 105 120 H 104 12/11/16 10:16 POC Glucose 161 H Phys Exam - Physical Examination Constitutional: NAD HEENT: PERRLA, moist MMs, sclera anicteric Neck: no JVD, supple Respiratory: no wheezing, no rales, no rhonchi Cardiovascular: RRR, no significant murmur, no rub Gastrointestinal: soft, non-tender, no distention, positive bowel sounds Musculoskeletal: no edema, pulses present Neurological: non-focal, normal sensation, moves all 4 limbs Psychiatric: normal affect, A&O x 3 Skin: no rash, normal turgor Dx/Plan (1) Bowel obstruction Code(s): K56.609 - UNSP INTESTNL OBST, UNSP TO PARTIAL VERSUS COMPLETE OBST Status: Acute Qualifiers: Intestinal obstruction type: other intestinal obstruction Intestinal obstruction extent: complete Qualified Code(s): K56.691 - Other complete intestinal obstruction (2) Hypokalemia Code(s): E87.6 - HYPOKALEMIA Status: Acute (3) Anemia, normocytic normochromic Code(s): D64.9 - ANEMIA, UNSPECIFIED Status: Chronic (4) Colon cancer Code(s): C18.9 - MALIGNANT NEOPLASM OF COLON, UNSPECIFIED Status: Chronic Qualifiers: Colon location: ascending Qualified Code(s): C18.2 - Malignant neoplasm of ascending colon Comment: h/o right hemicolectomy 11/30/16 (5) DM type 2 (diabetes mellitus, type 2) Status: Chronic Qualifiers: Diabetes mellitus complication status: with kidney complications Diabetes mellitus complication detail: with other kidney complication 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 Once able to demonstrate ability to tolerate PO intake, resume home medications. (7) SUSIE (obstructive sleep apnea) Code(s): G47.33 - OBSTRUCTIVE SLEEP APNEA (ADULT) (PEDIATRIC) Status: Chronic (8) Obesity (BMI 30.0-34.9) Code(s): E66.9 - OBESITY, UNSPECIFIED Status: Chronic (9) Acute renal failure Status: Resolved Qualifiers: Acute renal failure type: unspecified Qualified Code(s): N17.9 - Acute kidney failure, unspecified (10) Demand ischemia Code(s): I24.8 - OTHER FORMS OF ACUTE ISCHEMIC HEART DISEASE Status: Resolved (11) Hypernatremia Code(s): E87.0 - HYPEROSMOLALITY AND HYPERNATREMIA Status: Resolved (12) Lactic acid acidosis Code(s): E87.2 - ACIDOSIS Status: Resolved - Plan cont current plan of care * plan for discharge today * discharge meds reconciled * medication reviewed as below * symptomatic treatment. Review of Systems - Review of Systems ENT: negative: Ear Pain, Ear Discharge, Nose Pain, Nose Discharge, Nose Congestion, Mouth Pain, Mouth Swelling, Throat Pain, Throat Swelling, Other Respiratory: negative: Cough, Dry, Shortness of Breath, Hemoptysis, SOB with Excertion, Pleuritic Pain, Sputum, Wheezing Cardiovascular: negative: Chest Pain, Palpitations, Orthopnea, Paroxysmal Noc. Dyspnea, Edema, Light Headedness, Other Gastrointestinal: negative: Nausea, Vomiting, Abdominal Pain, Diarrhea, Constipation, Melena, Hematochezia, Other Genitourinary: negative: Dysuria, Frequency, Incontinence, Hematuria, Retention , Other Musculoskeletal: negative: Neck Pain, Shoulder Pain, Arm Pain, Back Pain, Hand Pain, Leg Pain, Foot Pain, Other Skin: negative: Rash, Lesions, Angel, Bruising, Other - Medications/Allergies Allergies/Adverse Reactions: Allergies Allergy/AdvReac Type Severity Reaction Status Date / Time No Known Allergies Allergy Verified 11/19/16 08:54 Medications: Current Medications Acetaminophen (Tylenol) 650 mg NC Q4H PRN PRN Reason: Headache/Fever or Mild Pain Albuterol/Ipratropium (Duoneb) 3 ml NEB Q6H PRN PRN Reason: SOB &/or Wheezing Artificial Tears (Tears Naturale) 0 drop EA EYE PRN PRN PRN Reason: Dry Eyes Dextrose/Water (Dextrose 50%) 25 gm SLOW IVP PRN PRN PRN Reason: Hypoglycemia Enalapril Maleate (Vasotec) 1.25 mg PO Q6HR [facility] Last Admin: 12/12/16 06:23 Dose: 1.25 mg Glucagon (Glucagon) 1 mg IM PRN PRN PRN Reason: Hypoglycemia Heparin Sodium (Porcine) (Heparin) 5,000 units SC BID [facility] Last Admin: 12/12/16 09:42 Dose: 5,000 units Hydralazine HCl (Apresoline) 10 mg SLOW IVP Q4H PRN PRN Reason: Systolic BP > 180 Dextrose/Water (D5w) 1,000 mls @ 0 mls/hr IV .Q0M PRN; As Directed PRN Reason: Hypoglycemia Insulin Detemir 20 units/ (Miscellaneous Medication) 0.2 mls @ 0 mls/hr SC HS [facility] Last Admin: 12/11/16 21:33 Dose: 0.2 mls Potassium Chloride 40 meq/ (Dextrose/Sodium Chloride) 1,020 mls @ 50 mls/hr IV .[id number] [facility] Last Admin: 12/12/16 02:42 Dose: Not Given Insulin Human Regular (Humulin R) 0 units SC .AGGRESSIVE SLIDING PRN; Protocol PRN Reason: AGGRESSIVE SLIDING SCALE Last Admin: 12/11/16 11:49 Dose: 3 unit Lorazepam (Ativan) 0.5 mg SLOW IVP Q6H PRN PRN Reason: Hiccups Last Admin: 12/09/16 02:26 Dose: 0.5 mg Metoclopramide HCl (Reglan) 10 mg IVP Q6H PRN PRN Reason: Nausea/Vomiting Last Admin: 12/09/16 12:16 Dose: 10 mg Mineral Oil/White Petrolatum (Eucerin Cream) 0 gm TOP BIDPRN PRN PRN Reason: Dry Skin Ondansetron HCl (Zofran) 4 mg IVP Q6H PRN PRN Reason: Nausea/Vomiting Last Admin: 12/08/16 18:22 Dose: 4 mg Pantoprazole Sodium (Protonix) 40 mg PO DAILY [facility] Last Admin: 12/12/16 09:39 Dose: 40 mg Sodium Chloride (Flush - Normal Saline) 10 ml IVF Q12HR [facility] Last Admin: 12/11/16 21:34 Dose: 10 ml Sodium Chloride (Flush - Normal Saline) 10 ml IVF PRN PRN PRN Reason: Saline Flush Last Admin: 12/11/16 10:41 Dose: 10 ml Sodium Chloride ([place] Nasal [place] 0.65%) 0 ml EA NARE QIDPRN PRN PRN Reason: Nasal Congestion
--- NOTE | 2016-12-12 12:03 | DIS ---
PRIMARY CARE PHYSICIAN: Dr. David Blackwell. DATE OF ADMISSION: 12/03/2016 DATE OF DISCHARGE: 12/12/2016 PRIMARY ATTENDING: Dr. Gaines/Dr. Houser. PRIMARY DISCHARGE DIAGNOSES: 1. Distal high grade small-bowel obstruction, resolved. 2. Acute kidney failure, improved. 3. Demand ischemia. 4. Hypernatremia. 5. Lactic acidosis. 6. Hypokalemia. SECONDARY DISCHARGE DIAGNOSES: 1. Anemia, normocytic normochromic. 2. Colon cancer. 3. Diabetes type 2. 4. Hypertension. 5. Obesity with BMI 34. 6. Obstructive sleep apnea. PRIMARY PROCEDURE/OPERATION: PICC line placement on 12/06/2016. RADIOLOGICAL INVESTIGATIONS: 1. Abdomen and pelvis CT scan showed distal high grade small-bowel obstruction. 2. Ultrasound was negative for any DVT in the left upper extremity. SIGNIFICANT LABS: WBC 7.0, hemoglobin 10.0, platelets 240. Sodium 140, potassium 3.3, BUN 10, crea tinine 0.89. Urinalysis unremarkable. Blood culture negative. DISCHARGE MEDICATIONS: Allopurinol 300 mg p.o. daily, aspirin 81 mg p.o. daily, vitamin D3 at 50,00 0 units p.o. as directed, Plavix 75 mg p.o. daily, gabapentin 300 mg p.o. t.i.d., [place] 10 one table t q.6 hours p.r.n., irbesartan with hydrochlorothiazide one tablet p.o. daily, Toprol-XL 200 mg p.o. at bedtime., Zofran 4 mg q.8 hourly p.r.n., Protonix 40 mg p.o. daily, potassium citrate 20 mEq p.o . t.i.d., amlodipine with Lipitor 10/40 one tablet p.o. daily, metformin ER 500 mg p.o. b.i.d., and oxycodone one tablet b.i.d. p.r.n. CONTRAINDICATION: None. CODE STATUS: FULL CODE. INPATIENT CONSULTANTS: Dr. Gaines was primary while in hospital. Dr. Houser was subsequently follo wing this patient while in hospital. Dr. Ernst was consulted while in hospital. Dr. Baron w as following while in hospital. Sound team was consulted for medical management. TEST RESULTS PENDING ON DISCHARGE: None. ALLERGIES: No known drug allergy. DISCHARGE PLAN: 1. Post hospital, the patient will follow up with Dr. Houser in 2 weeks. 2. The patient will make appointment with Dr. David Blackwell in 1 week. HOSPITAL COURSE: A 71-year-old male, who was admitted by Dr. Gaines on 12/03/2016. This patient cam e to the emergency room on that day and he had CT of the abdomen and pelvis and patient was found wi th distal high grade small-bowel obstruction. We were consulted for medical comanagement. This pat ient has recent diagnosis of ascending colon cancer and he required hemicolectomy and subsequently h e developed high grade small-bowel obstruction. This patient was treated conservatively with n.p.o. , IV fluid, and pain control. He remained in prolonged ileus and that is why TPN was started. In t emergency room, the patient was acutely hypotensive and that is why he was admitted overnight in IMCU and because he stayed in IMCU that is why Dr. Ernst saw this patient while in hospital. He a lso had acute kidney failure, lactic acidosis, abnormal electrolytes that was corrected before disch arge. The patient had a PICC line and the patient was getting TPN. After that, the patient had improvemen t in his ileus and small-bowel obstruction. At that point, the patient was advanced on clear liquid , full liquid, and solid food, and he is tolerating very well. Today, primary team discharge this p atient and we will sign off. The patient is seen and examined at bedside today. Please see my prog ress note from today for further detail.
== END 2016-12-12 11:30 | disposition home or self-care (01) | DRG 388 ==
LOC: ERS 00:30 → IMCU/EMU 02:20 → SJJU 12-04 17:03
PROVIDERS: ADMIT Surgery; ATTEND Surgery
PROC: 02H633Z Insertion of Infusion Device into Right Atrium, Percutaneous Approach (ICD-10-PCS; principal; 2016-12-06)
PROC: 3E0436Z Introduction of Nutritional Substance into Central Vein, Percutaneous Approach (ICD-10-PCS; 2016-12-06)
DX: K91.32 Postprocedural complete intestinal obstruction (principal); N17.0 Acute kidney failure with tubular necrosis; E87.0 Hyperosmolality and hypernatremia; E87.2 Acidosis; I95.9 Hypotension, unspecified; I24.8 Other forms of acute ischemic heart disease; C18.2 Malignant neoplasm of ascending colon; E11.22 Type 2 diabetes mellitus with diabetic chronic kidney disease; E11.65 Type 2 diabetes mellitus with hyperglycemia; D64.9 Anemia, unspecified; E87.6 Hypokalemia; E66.01 Morbid (severe) obesity due to excess calories; Z68.34 Body mass index [BMI] 34.0-34.9, adult; G47.33 Obstructive sleep apnea (adult) (pediatric); Z90.49 Acquired absence of other specified parts of digestive tract; M10.9 Gout, unspecified; Z86.73 Personal history of transient ischemic attack (TIA), and cerebral infarction without residual deficits; E86.0 Dehydration; I12.9 Hypertensive chronic kidney disease with stage 1 through stage 4 chronic kidney disease, or unspecified chronic kidney disease; N18.9 Chronic kidney disease, unspecified; R06.6 Hiccough
CPT/HCPCS: 36415; 36416; 36569; 71010; 74000; 74020; 74176; 80048; 80053; 80061; 81001; 82550; 82553; 82570; 83605; 83735; 83880; 84100; 84300; 84484; 84550; 85025; 87040; 93005; 96361; 96365; 96367; 96368; A4216; A4217; C1751; C9113; G8978-GP-CJ; G8979-GP-CH; J1644; J1815; J2060; J2405; J2543; J2710; J2765; J3370; J3475; J3480; J7042; J7050

== ENCOUNTER 2020-09-29 11:56 | Outpatient (CLI) | payer MEDICARE, BC | END 2020-09-29 11:57 | disposition home or self-care (01) | LOC: BICRAD 11:56 | PROVIDERS: ATTEND Physician Assistant Medical | DX: R06.6 Hiccough (principal) | CPT/HCPCS: 71046 ==

== ENCOUNTER 2020-12-28 09:45 | Outpatient (CLI) | payer MEDICARE, BC ==
[2020-12-28 17:08] LABS: SARS-CoV-2 PCR by NAA Not Detected (NotDetected)
== END 2020-12-28 09:46 | disposition home or self-care (01) ==
LOC: LABBT 09:45
PROVIDERS: ATTEND Internal Medicine Hematology & Oncology
DX: Z01.812 Encounter for preprocedural laboratory examination (principal); N28.89 Other specified disorders of kidney and ureter; Z20.822 Contact with and (suspected) exposure to COVID-19
CPT/HCPCS: U0003; U0005

== ENCOUNTER 2021-01-02 08:26 | Day surgery (SDC) | payer MEDICARE, BC ==
[2020-12-22 12:40] VITALS: BMI 38.2
[2021-01-02 08:53] LABS: INR-International Normal Ratio 0.9; PTT 31.2 sec (22.9-36.1); Prothrombin Time 12.3 sec (12.0-14.7)
[2021-01-02 09:18] VITALS: BP 144/82; TEMP 98.3
== END 2021-01-02 12:35 | disposition home or self-care (01) ==
LOC: CT 08:26
PROVIDERS: ATTEND Internal Medicine Hematology & Oncology
PROC: 0TB03ZX Excision of Right Kidney, Percutaneous Approach, Diagnostic (ICD-10-PCS; principal; 2021-01-02)
DX: C64.1 Malignant neoplasm of right kidney, except renal pelvis (principal); G47.33 Obstructive sleep apnea (adult) (pediatric); J45.909 Unspecified asthma, uncomplicated; E78.5 Hyperlipidemia, unspecified; E11.9 Type 2 diabetes mellitus without complications; I10 Essential (primary) hypertension; I25.10 Atherosclerotic heart disease of native coronary artery without angina pectoris; Z85.038 Personal history of other malignant neoplasm of large intestine; Z86.73 Personal history of transient ischemic attack (TIA), and cerebral infarction without residual deficits; Z79.02 Long term (current) use of antithrombotics/antiplatelets; Z79.82 Long term (current) use of aspirin; Z79.84 Long term (current) use of oral hypoglycemic drugs; Z79.899 Other long term (current) drug therapy; Z90.49 Acquired absence of other specified parts of digestive tract
CPT/HCPCS: 50200; 77012; 85610; 85730; 88305; 88333; 88341; 88342

== ENCOUNTER 2021-02-22 11:04 | Outpatient (CLI) | payer MEDICARE, BC | END 2021-02-22 11:05 | disposition home or self-care (01) | LOC: LABBT 11:04 | PROVIDERS: ATTEND Urology | DX: Z01.818 Encounter for other preprocedural examination (principal); C64.9 Malignant neoplasm of unspecified kidney, except renal pelvis; I63.50 Cerebral infarction due to unspecified occlusion or stenosis of unspecified cerebral artery; I25.10 Atherosclerotic heart disease of native coronary artery without angina pectoris; Z20.822 Contact with and (suspected) exposure to COVID-19 | CPT/HCPCS: 71046; 80048; 81001; 85027; 85610; 85730; 86850; 86900; 86901; 86920; 87086; 93005; U0003; U0005; 87077; 87186; 93010 ==

== ENCOUNTER 2021-02-22 11:30 | Inpatient (IN) | payer MEDICARE, BC ==
[2021-02-22 12:58] LABS: Hemoglobin 14.6 g/dL (13.5-17.5); Mean Corpuscular HGB CONC 32.8 g/dL (32.0-36.0); Mean Corpuscular Hemoglobin 30.5 pg (27.0-33.0); Mean Corpuscular Volume 93.1 fl (81.2-95.1); Mean Platelet Volume 10.8 fl (7.4-10.4); Platelet Count 187 10x3/uL (150-450); RBC Distribution Width 12.8 % (11.5-14.5); Red Blood Cell (RBC) Count 4.78 10x6/uL (4.32-5.72); White Blood Cell (WBC) Count 6.2 10x3/uL (3.5-10.5)
[2021-02-22 13:03] LABS: Bilirubin Neg (Negative); Blood, Urine 10 (Negative); Clarity Slightly Cloudy (Clear); Glucose, Urine (Dipstick) Normal (Negative); Ketone, Urine Negative (Negative); Leukocyte 500 (Negative); Nitrite Positive (Negative); Protein, Urine (Dipstick) 30 mg/dl (Neg-Trace); Urobilinogen Normal mg/dL (Less than 2)
[2021-02-22 13:11] LABS: Bacteria/HPF 3+ HPF (None Seen); RBC/HPF 0-3 HPF (0-3); Squamous Epithelial 0-3 HPF (0-3)
[2021-02-22 13:12] LABS: WBC/HPF 21-50 HPF (0-3)
[2021-02-22 13:24] LABS: Anion Gap 12 mmol/L (10-20); BUN (Urea Nitrogen) 17 mg/dL (8.4-25.7); Calc. Creatinine Clearance 0 mL/min (70-130); Carbon Dioxide 28 mmol/L (23-31); Chloride 107 mmol/L (98-107); Glucose 84 mg/dL (83-110); PTT 23.6 sec (22.0-33.0); Potassium 4.5 mmol/L (3.5-5.1); Prothrombin Time 10.6 sec (9.5-12.1); Sodium 142 mmol/L (136-145)
[2021-02-23 00:13] LABS: SARS-CoV-2 PCR by NAA Not Detected (NotDetected)
[2021-02-27] MEDS ORDERED: ceFAZolin 2 GM/DEX 5% 100 ML BAG ONE (08:12)
[2021-02-27] MEDS ORDERED: Lidocaine 1% PF 5 ML VIAL ONE ×2 (09:54→10:32)
[2021-02-27] MEDS ORDERED: SUGAMMADEX SODIUM 200 MG/2 ML VIAL ONE (10:06)
[2021-02-27] MEDS ORDERED: Fentanyl 100 MCG/2 ML VIAL ONE (10:06)
[2021-02-27] MEDS ORDERED: Famotidine/PF 20 mg/2ml Vial ONE (10:06)
[2021-02-27] MEDS ORDERED: Bupivacaine 0.25% 10 ML VIAL ONE (10:06)
[2021-02-27] MEDS ORDERED: Glycopyrrolate 0.2 MG/ML 5 ML SYRINGE ONE (10:32)
[2021-02-27] MEDS ORDERED: ePHEDrine 50 MG/ML VIAL ONE (10:32)
[2021-02-27] MEDS ORDERED: PROPOFOL 200 MG/20 ML VIAL ONE (10:32)
[2021-02-27] MEDS ORDERED: Phenylephrine 10 MG/ML VIAL ONE (10:32)
[2021-02-27] MEDS ORDERED: Rocuronium Bromide 10 MG/ML (10ML VIAL) ONE (10:32)
[2021-02-27] MEDS ORDERED: Lidocaine 1.5% w/Epi 1:200K 30 ML VIAL (Epid Use) ONE (10:32)
[2021-02-27] MEDS ORDERED: Ondansetron PF 4 MG/2 ML Vial ONE (10:32)
[2021-02-27] MEDS ORDERED: Acetaminophen 500 MG TAB PO PRN (10:41)
[2021-02-27] MEDS ORDERED: Naloxone HCl 0.4 mg/ml Vial IVP PRN (10:45)
[2021-02-27] MEDS ORDERED: Zolpidem Tartrate 5 MG TAB PO PRN (10:45)
[2021-02-27] MEDS ORDERED: diphenhydrAMINE 25 MG CAP PO PRN (10:45)
[2021-02-27] MEDS ORDERED: Promethazine HCl 25 MG SUPP PR PRN (10:45)
[2021-02-27] MEDS ORDERED: HYDROcodone/Acetaminophen 5/325 mg Tablet PO PRN ×2 (10:45)
[2021-02-27] MEDS ORDERED: Bupivacaine 0.25% 10 ML VIAL EPIDURAL PRN (10:45)
[2021-02-27] MEDS ORDERED: Ondansetron PF 4 MG/2 ML Vial IVP PRN (10:45)
[2021-02-27] MEDS ORDERED: traMADol HCl 50 MG TAB PO PRN ×2 (10:45)
[2021-02-27] MEDS ORDERED: Hydrocerin (Eucerin) Cream 120 gm Jar TOP PRN (10:45)
[2021-02-27] MEDS ORDERED: diphenhydrAMINE 50 MG/ML VIAL IVP PRN (10:45)
[2021-02-27] MEDS ORDERED: Promethazine HCl 25 MG/ML VIAL IM PRN ×2 (10:45→12:58)
[2021-02-27] MEDS ORDERED: Naloxone HCl 0.4 mg/ml Vial IV PRN (10:45)
[2021-02-27] MEDS ORDERED: diphenhydrAMINE 50 MG/ML VIAL IM PRN (10:45)
[2021-02-27] MEDS ORDERED: HYDROmorphone 2 MG/ML VIAL ONE (11:18)
[2021-02-27] MEDS ORDERED: Promethazine HCl 25 MG/ML VIAL IVPB PRN (12:58)
[2021-02-27] MEDS ORDERED: Meperidine HCl/PF 25 MG/ML VIAL SLOW IVP PRN (12:58)
[2021-02-27] MEDS ORDERED: PACU-Morphine 4MG/ML VIAL SLOW IVP PRN (12:58)
[2021-02-27] MEDS ORDERED: Dextrose 5% in Water 1,000 ML IV PRN (14:40)
[2021-02-27] MEDS ORDERED: Mag-Al 1200 mg/1200 mg/30 ML UDCUP PO PRN (14:40)
[2021-02-27] MEDS ORDERED: Dextrose 50% Abboject 50 ML SYRINGE SLOW IVP PRN (14:40)
[2021-02-27] MEDS ORDERED: Insulin Regular 300 UNITS/3 ML VIAL SC PRN (14:40)
[2021-02-27] MEDS ORDERED: Non-Formulary Item 1 EACH (Baclofen [Baclofen] 5 MG Tablet) PO PRN (14:42)
[2021-02-27] MEDS ORDERED: Potassium Citrate 10 MEQ TAB PO SCH (15:00)
[2021-02-27 16:10] LABS: #Neutrophils 8.6 thou/uL (1.40-6.50); %Basophils 0.2 % (0.0-1.0); %Eosinophils 0.5 % (0.0-10.0); %Lymphocytes 9.7 % (21.0-51.0); %Monocytes 9.1 % (0.0-10.0); %Neutrophils 80.6 % (42.0-75.0); Hemoglobin 15.3 g/dL (14.0-18.0); Mean Corpuscular HGB CONC 34.1 g/dL (32.0-36.0); Mean Corpuscular Hemoglobin 32.4 pg (27.0-31.0); Mean Corpuscular Volume 95.2 fL (78.0-98.0); Mean Platelet Volume 8.9 fL (7.4-10.4); Platelet Count 94 thou/uL (130-400); RBC Distribution Width 12.3 % (11.5-14.5); Red Blood Cell (RBC) Count 4.71 mill/uL (4.70-6.10); White Blood Cell (WBC) Count 10.6 thou/uL (4.8-10.8)
[2021-02-27 16:15] LABS: Anion Gap 14 mmol/L (10-20); BUN (Urea Nitrogen) 17 mg/dL (8.4-25.7); Calc. Creatinine Clearance 79 mL/min (70-130); Calcium 9.4 mg/dL (7.8-10.44); Carbon Dioxide 18 mmol/L (23-31); Chloride 113 mmol/L (98-107); Glucose 147 mg/dL (83-110); Potassium 4.5 mmol/L (3.5-5.1); Sodium 140 mmol/L (136-145)
[2021-02-27 16:27] LABS: MDiff Complete? YES; Platelet Morphology Comment Appears Decreased; Polychromasia SLIGHT = 2-3 cells (100X) (0-2/hpf)
[2021-02-27] MEDS: Nateglinide 120 MG TAB PO SCH (16:30)
[2021-02-27] MEDS: Sodium Chloride 0.9% 1,000 ML IV SCH (19:12)
[2021-02-27] MEDS: Docusate 100 MG CAP PO SCH (21:08)
[2021-02-27] MEDS: Famotidine/PF 20 mg/2ml Vial SLOW IVP SCH (21:08)
[2021-02-27] MEDS: CEFAZOLIN 1 GM in Sodium Chloride 0.9% 100 ML IVPB SCH (21:13)
[2021-02-27] MEDS: metFORMIN XR 500 MG TAB PO SCH (21:22)
[2021-02-27 22:29] VITALS: BMI 36.0
[2021-02-28] MEDS: Sodium Chloride 0.9% 1,000 ML IV SCH ×4 (00:36→20:43)
[2021-02-28] MEDS: Fentanyl 5 mcg/Bup 0.075% Cadd 100 ML EPIDURAL SCH ×2 (02:36→13:24)
[2021-02-28] MEDS: CEFAZOLIN 1 GM in Sodium Chloride 0.9% 100 ML IVPB SCH ×3 (06:20→23:03)
[2021-02-28 06:21] LABS: #Lymphocytes 1.2 thou/uL (1.20-3.40); #Neutrophils 6.8 thou/uL (1.40-6.50); %Basophils 0.2 % (0.0-1.0); %Eosinophils 0.3 % (0.0-10.0); %Lymphocytes 13.3 % (21.0-51.0); %Monocytes 11.5 % (0.0-10.0); %Neutrophils 74.8 % (42.0-75.0); Hemoglobin 12.3 g/dL (14.0-18.0); Mean Corpuscular HGB CONC 33.3 g/dL (32.0-36.0); Mean Corpuscular Hemoglobin 31.9 pg (27.0-31.0); Mean Corpuscular Volume 95.8 fL (78.0-98.0); Mean Platelet Volume 7.8 fL (7.4-10.4); Platelet Count 153 thou/uL (130-400); RBC Distribution Width 12.3 % (11.5-14.5); Red Blood Cell (RBC) Count 3.85 mill/uL (4.70-6.10); White Blood Cell (WBC) Count 9.1 thou/uL (4.8-10.8)
[2021-02-28 06:45] LABS: Anion Gap 10 mmol/L (10-20); BUN (Urea Nitrogen) 19 mg/dL (8.4-25.7); Calc. Creatinine Clearance 67 mL/min (70-130); Carbon Dioxide 23 mmol/L (23-31); Chloride 111 mmol/L (98-107); Glucose 140 mg/dL (83-110); Potassium 4.2 mmol/L (3.5-5.1); Sodium 140 mmol/L (136-145)
[2021-02-28] MEDS ORDERED: [UNRECOGNIZED DRUG - OTHER] PO SCH (09:00)
[2021-02-28] MEDS ORDERED: ATORVASTATIN PO SCH (09:00)
[2021-02-28] MEDS ORDERED: FLU VACC QS2021-22(65YR UP)/PF 240 MCG/0.7 ML SYRINGE IM ONE (09:00)
[2021-02-28] MEDS ORDERED: AMLODIPINE PO SCH (09:00)
[2021-02-28] MEDS ORDERED: Ergocalciferol 1.25 MG(50,000 UNITS) CAP PO SCH (09:00)
[2021-02-28] MEDS: metFORMIN XR 500 MG TAB PO SCH ×2 (09:07→20:44)
[2021-02-28] MEDS: Famotidine/PF 20 mg/2ml Vial SLOW IVP SCH ×2 (09:08→20:44)
[2021-02-28] MEDS: Atorvastatin Calcium 40 MG TAB PO SCH (09:08)
[2021-02-28] MEDS: Docusate 100 MG CAP PO SCH ×2 (09:08→20:44)
[2021-02-28] MEDS: Hydrochlorothiazide 25 MG TAB PO SCH (09:08)
[2021-02-28] MEDS: Allopurinol 300 MG TAB PO SCH (09:09)
[2021-02-28] MEDS: Amlodipine 10 MG TAB PO SCH (09:09)
[2021-02-28] MEDS: Nateglinide 120 MG TAB PO SCH ×2 (09:09→16:12)
[2021-02-28] MEDS: Losartan 25 MG TAB PO SCH (09:09)
[2021-03-01] MEDS: Fentanyl 5 mcg/Bup 0.075% Cadd 100 ML EPIDURAL SCH ×2 (02:23→13:19)
[2021-03-01 04:25] LABS: #Eosinphils 0.1 thou/uL (0.0-0.7); #Lymphocytes 1.3 thou/uL (1.20-3.40); #Monocytes 1.1 thou/uL (0.11-0.59); %Basophils 0.3 % (0.0-1.0); %Eosinophils 0.8 % (0.0-10.0); %Lymphocytes 13.3 % (21.0-51.0); %Monocytes 11.3 % (0.0-10.0); %Neutrophils 74.3 % (42.0-75.0); Hemoglobin 11.4 g/dL (14.0-18.0); Mean Corpuscular HGB CONC 33.3 g/dL (32.0-36.0); Mean Platelet Volume 7.8 fL (7.4-10.4); Platelet Count 140 thou/uL (130-400); RBC Distribution Width 12.1 % (11.5-14.5); Red Blood Cell (RBC) Count 3.57 mill/uL (4.70-6.10); White Blood Cell (WBC) Count 9.5 thou/uL (4.8-10.8)
[2021-03-01 04:53] LABS: Anion Gap 11 mmol/L (10-20); BUN (Urea Nitrogen) 17 mg/dL (8.4-25.7); Carbon Dioxide 21 mmol/L (23-31); Chloride 111 mmol/L (98-107); Potassium 4.2 mmol/L (3.5-5.1); Sodium 139 mmol/L (136-145)
[2021-03-01 04:54] LABS: Calc. Creatinine Clearance 63 mL/min (70-130); Calcium 9.4 mg/dL (7.8-10.44); Glucose 127 mg/dL (83-110)
[2021-03-01] MEDS: CEFAZOLIN 1 GM in Sodium Chloride 0.9% 100 ML IVPB SCH ×3 (05:36→21:17)
[2021-03-01] MEDS: Nateglinide 120 MG TAB PO SCH ×2 (09:05→17:09)
[2021-03-01] MEDS: Hydrochlorothiazide 25 MG TAB PO SCH (09:05)
[2021-03-01] MEDS: metFORMIN XR 500 MG TAB PO SCH ×2 (09:05→21:09)
[2021-03-01] MEDS: Docusate 100 MG CAP PO SCH ×2 (09:05→21:09)
[2021-03-01] MEDS: Famotidine/PF 20 mg/2ml Vial SLOW IVP SCH ×2 (09:05→21:10)
[2021-03-01] MEDS: Losartan 25 MG TAB PO SCH (09:05)
[2021-03-01] MEDS: Atorvastatin Calcium 40 MG TAB PO SCH (09:05)
[2021-03-01] MEDS: Allopurinol 300 MG TAB PO SCH (09:05)
[2021-03-01] MEDS: Amlodipine 10 MG TAB PO SCH (09:06)
[2021-03-01] MEDS: Sodium Chloride 0.9% 1,000 ML IV SCH ×2 (09:06→21:08)
[2021-03-01] MEDS: Enoxaparin Sodium 40 MG/0.4 ML SYRINGE SC SCH (21:09)
[2021-03-02] MEDS: Sodium Chloride 0.9% 1,000 ML IV SCH ×3 (00:55→16:38)
[2021-03-02] MEDS: Fentanyl 5 mcg/Bup 0.075% Cadd 100 ML EPIDURAL SCH (03:53)
[2021-03-02] MEDS: CEFAZOLIN 1 GM in Sodium Chloride 0.9% 100 ML IVPB SCH ×3 (04:03→21:28)
[2021-03-02 06:24] LABS: #Eosinphils 0.2 thou/uL (0.0-0.7); #Lymphocytes 1.3 thou/uL (1.20-3.40); #Monocytes 1.1 thou/uL (0.11-0.59); #Neutrophils 6.7 thou/uL (1.40-6.50); %Basophils 0.2 % (0.0-1.0); %Eosinophils 1.8 % (0.0-10.0); %Lymphocytes 13.9 % (21.0-51.0); %Monocytes 12.1 % (0.0-10.0); Hemoglobin 10.9 g/dL (14.0-18.0); Mean Corpuscular HGB CONC 34.1 g/dL (32.0-36.0); Mean Corpuscular Hemoglobin 32.8 pg (27.0-31.0); Platelet Count 131 thou/uL (130-400); RBC Distribution Width 12.1 % (11.5-14.5); Red Blood Cell (RBC) Count 3.33 mill/uL (4.70-6.10); White Blood Cell (WBC) Count 9.3 thou/uL (4.8-10.8)
[2021-03-02 06:47] LABS: Anion Gap 8 mmol/L (10-20); BUN (Urea Nitrogen) 18 mg/dL (8.4-25.7); Calc. Creatinine Clearance 68 mL/min (70-130); Calcium 9.5 mg/dL (7.8-10.44); Carbon Dioxide 25 mmol/L (23-31); Chloride 110 mmol/L (98-107); Glucose 136 mg/dL (83-110); Potassium 4.2 mmol/L (3.5-5.1); Sodium 139 mmol/L (136-145)
[2021-03-02] MEDS: Losartan 25 MG TAB PO SCH (08:50)
[2021-03-02] MEDS: Hydrochlorothiazide 25 MG TAB PO SCH (08:51)
[2021-03-02] MEDS: Docusate 100 MG CAP PO SCH ×2 (08:53→21:23)
[2021-03-02] MEDS: Allopurinol 300 MG TAB PO SCH (08:53)
[2021-03-02] MEDS: metFORMIN XR 500 MG TAB PO SCH ×2 (08:53→21:23)
[2021-03-02] MEDS: Amlodipine 10 MG TAB PO SCH (08:53)
[2021-03-02] MEDS: Famotidine/PF 20 mg/2ml Vial SLOW IVP SCH ×2 (08:54→21:23)
[2021-03-02] MEDS: Atorvastatin Calcium 40 MG TAB PO SCH (08:56)
[2021-03-02] MEDS ORDERED: HYDROcodone/Acetaminophen 10/325 mg Tablet PO PRN (09:24)
[2021-03-02] MEDS: Nateglinide 120 MG TAB PO SCH ×2 (12:31→16:32)
[2021-03-02] MEDS: Enoxaparin Sodium 40 MG/0.4 ML SYRINGE SC SCH (21:23)
[2021-03-03] MEDS: Sodium Chloride 0.9% 1,000 ML IV SCH ×3 (03:26→17:28)
[2021-03-03] MEDS: CEFAZOLIN 1 GM in Sodium Chloride 0.9% 100 ML IVPB SCH ×3 (05:49→21:05)
[2021-03-03] MEDS: Nateglinide 120 MG TAB PO SCH ×2 (07:27→17:25)
[2021-03-03] MEDS: HYDROcodone/Acetaminophen 10/325 mg Tablet PO PRN (07:27)
[2021-03-03] MEDS: Losartan 25 MG TAB PO SCH (08:58)
[2021-03-03] MEDS: metFORMIN XR 500 MG TAB PO SCH ×2 (08:58→21:04)
[2021-03-03] MEDS: Famotidine/PF 20 mg/2ml Vial SLOW IVP SCH ×2 (08:58→21:04)
[2021-03-03] MEDS: Docusate 100 MG CAP PO SCH ×2 (08:58→21:04)
[2021-03-03] MEDS: Allopurinol 300 MG TAB PO SCH (08:59)
[2021-03-03] MEDS: Amlodipine 10 MG TAB PO SCH (08:59)
[2021-03-03] MEDS: Atorvastatin Calcium 40 MG TAB PO SCH (08:59)
[2021-03-03] MEDS: Hydrochlorothiazide 25 MG TAB PO SCH (08:59)
[2021-03-03] MEDS: Enoxaparin Sodium 40 MG/0.4 ML SYRINGE SC SCH (21:04)
[2021-03-04] MEDS: Sodium Chloride 0.9% 1,000 ML IV SCH ×3 (04:29→20:56)
[2021-03-04] MEDS: Nateglinide 120 MG TAB PO SCH ×2 (06:26→17:00)
[2021-03-04] MEDS: CEFAZOLIN 1 GM in Sodium Chloride 0.9% 100 ML IVPB SCH ×3 (06:28→23:01)
[2021-03-04] MEDS: Famotidine/PF 20 mg/2ml Vial SLOW IVP SCH ×2 (08:19→20:55)
[2021-03-04] MEDS: Atorvastatin Calcium 40 MG TAB PO SCH (08:19)
[2021-03-04] MEDS: Amlodipine 10 MG TAB PO SCH (08:19)
[2021-03-04] MEDS: Hydrochlorothiazide 25 MG TAB PO SCH (08:20)
[2021-03-04] MEDS: Allopurinol 300 MG TAB PO SCH (08:20)
[2021-03-04] MEDS: metFORMIN XR 500 MG TAB PO SCH ×2 (08:22→20:54)
[2021-03-04] MEDS: Docusate 100 MG CAP PO SCH ×2 (08:23→20:54)
[2021-03-04] MEDS ORDERED: Losartan 25 MG TAB PO SCH (08:45)
[2021-03-04] MEDS: Losartan 25 MG TAB PO SCH (09:13)
[2021-03-04] MEDS: HYDROcodone/Acetaminophen 10/325 mg Tablet PO PRN ×2 (11:34→20:55)
[2021-03-04 17:13] LABS: SARS-CoV-2 PCR by NAA Not Detected (NotDetected)
[2021-03-04] MEDS: hydrALAZINE 20 MG/ML VIAL SLOW IVP PRN (17:44)
[2021-03-04] MEDS: Enoxaparin Sodium 40 MG/0.4 ML SYRINGE SC SCH (20:55)
[2021-03-05] MEDS: Sodium Chloride 0.9% 1,000 ML IV SCH ×2 (04:23→22:00)
[2021-03-05] MEDS: ceFAZolin 1 GM/D5W 1 GM in Premix Bag 1 BAG IVPB SCH ×2 (05:35→14:53)
[2021-03-05] MEDS: hydrALAZINE 20 MG/ML VIAL SLOW IVP PRN (06:07)
[2021-03-05] MEDS: Nateglinide 120 MG TAB PO SCH ×2 (07:48→22:02)
[2021-03-05] MEDS: Allopurinol 300 MG TAB PO SCH (10:46)
[2021-03-05] MEDS: Docusate 100 MG CAP PO SCH (10:46)
[2021-03-05] MEDS: Famotidine/PF 20 mg/2ml Vial SLOW IVP SCH (10:46)
[2021-03-05] MEDS: Losartan 25 MG TAB PO SCH (10:47)
[2021-03-05] MEDS: metFORMIN XR 500 MG TAB PO SCH (10:47)
[2021-03-05] MEDS: Hydrochlorothiazide 25 MG TAB PO SCH (10:48)
[2021-03-05] MEDS: HYDROcodone/Acetaminophen 10/325 mg Tablet PO PRN ×2 (10:48→16:04)
[2021-03-05] MEDS: Atorvastatin Calcium 40 MG TAB PO SCH (10:49)
[2021-03-05] MEDS: Amlodipine 10 MG TAB PO SCH (10:49)
[2021-03-05 12:22] VITALS: TEMP 98.7
[2021-03-05 21:49] VITALS: BP 132/78
[2021-03-06] MEDS ORDERED: Non-Formulary Item 1 EACH (Semaglutide [Ozempic] 1 MG/0.75 ML Pen.Injctr) SC SCH (09:00)
== END 2021-03-05 17:50 | disposition home health service (06) | DRG 657 ==
LOC: SURG A 02-27 07:40 → SURG B 02-27 15:19
PROVIDERS: ADMIT Urology; ATTEND Urology
PROC: 0TB00ZZ Excision of Right Kidney, Open Approach (ICD-10-PCS; principal; 2021-02-27)
DX: C64.1 Malignant neoplasm of right kidney, except renal pelvis (principal); J98.11 Atelectasis; Z20.822 Contact with and (suspected) exposure to COVID-19; I12.9 Hypertensive chronic kidney disease with stage 1 through stage 4 chronic kidney disease, or unspecified chronic kidney disease; E11.22 Type 2 diabetes mellitus with diabetic chronic kidney disease; N18.9 Chronic kidney disease, unspecified; M54.59 Other low back pain; G89.29 Other chronic pain; E78.5 Hyperlipidemia, unspecified; I25.10 Atherosclerotic heart disease of native coronary artery without angina pectoris; M10.9 Gout, unspecified; Z86.73 Personal history of transient ischemic attack (TIA), and cerebral infarction without residual deficits; Z99.89 Dependence on other enabling machines and devices; Z79.84 Long term (current) use of oral hypoglycemic drugs; Z79.82 Long term (current) use of aspirin
CPT/HCPCS: 36415; 36416; 80048; 81001; 85025; 85027; 85610; 85730; 86850; 86900; 86901; 87077; 87086; 87186; 88307; C1713; J0360; J0690; J1170; J1650; J1815; J2001; J2370; J2405; J2704; J3010; J3490; J7050; S0020; S0028; U0003; U0005

== ENCOUNTER 2021-11-16 08:42 | Observation (INO) | payer MEDICARE, BC ==
[2021-11-16 09:31] LABS: ALT (SGPT) 24 U/L (8-55); AST (SGOT) 17 U/L (5-34); Albumin 3.9 g/dL (3.4-4.8); Alkaline Phosphatase 88 U/L (40-110); Anion Gap 14 mmol/L (10-20); BUN (Urea Nitrogen) 10 mg/dL (8.4-25.7); Bilirubin, Total 0.6 mg/dL (0.2-1.2); Calc. Creatinine Clearance 0 mL/min (70-130); Calcium 9.1 mg/dL (7.8-10.44); Carbon Dioxide 24 mmol/L (23-31); Chloride 108 mmol/L (98-107); Estimated GFR 69; Globulin 2.8 g/dL (2.4-3.5); Glucose 118 mg/dL (83-110); Potassium 4.1 mmol/L (3.5-5.1); Protein, Total 6.7 g/dL (5.8-8.1); Sodium 142 mmol/L (136-145)
[2021-11-16 09:49] LABS: #Eosinphils 0.1 thou/uL (0.0-0.7); #Lymphocytes 1.7 thou/uL (1.20-3.40); #Monocytes 0.5 thou/uL (0.11-0.59); #Neutrophils 3.4 thou/uL (1.40-6.50); %Basophils 0.8 % (0.0-1.0); %Eosinophils 2.5 % (0.0-10.0); %Lymphocytes 28.9 % (21.0-51.0); %Monocytes 8.5 % (0.0-10.0); %Neutrophils 59.3 % (42.0-75.0); Hemoglobin 13.1 g/dL (14.0-18.0); Mean Corpuscular HGB CONC 32.2 g/dL (32.0-36.0); Mean Corpuscular Hemoglobin 30.3 pg (27.0-31.0); Mean Corpuscular Volume 94.2 fL (78.0-98.0); Mean Platelet Volume 8.3 fL (7.4-10.4); Platelet Count 190 thou/uL (130-400); Red Blood Cell (RBC) Count 4.31 mill/uL (4.70-6.10); White Blood Cell (WBC) Count 5.7 thou/uL (4.8-10.8)
[2021-11-16 09:52] LABS: CKMB 2.5 ng/mL (0-6.6)
[2021-11-16 10:37] LABS: SARS-CoV-2 NAA Rapid Test Not Detected (NotDetected)
[2021-11-16 13:12] LABS: Magnesium 1.9 mg/dL (1.6-2.6)
[2021-11-16] MEDS ORDERED: Magnesium 2 GM/50 ML(in water) 2 GM in Premix Bag 1 BAG IVPB SCH (14:00)
[2021-11-16 14:12] LABS: Troponin I 0.029 ng/mL (< 0.028)
[2021-11-16] MEDS ORDERED: Acetaminophen 325 MG TAB PO PRN (14:15)
[2021-11-16] MEDS ORDERED: Ondansetron ODT 4 MG TAB PO PRN (14:15)
[2021-11-16] MEDS ORDERED: Ondansetron PF 4 MG/2 ML Vial IVP PRN (14:15)
[2021-11-16] MEDS ORDERED: Dextrose 5% in Water 1,000 ML IV PRN (14:20)
[2021-11-16] MEDS ORDERED: Insulin Regular 300 UNITS/3 ML VIAL SC PRN ×2 (14:20)
[2021-11-16] MEDS ORDERED: Dextrose 50% Abboject 50 ML SYRINGE SLOW IVP PRN (14:20)
[2021-11-16] MEDS ORDERED: hydrALAZINE 20 MG/ML VIAL SLOW IVP PRN (16:36)
[2021-11-16] MEDS ORDERED: Amlodipine 10 MG TAB PO SCH (16:45)
[2021-11-16] MEDS ORDERED: Losartan 25 MG TAB PO SCH (16:45)
[2021-11-16 17:04] LABS: Troponin I 0.029 ng/mL (< 0.028)
[2021-11-16] MEDS: Gabapentin 100 MG CAP PO SCH (19:56)
[2021-11-16] MEDS: hydrALAZINE 25 MG TAB PO SCH (19:57)
[2021-11-16] MEDS ORDERED: GoLYTELY 4,000 ml Bottle PO SCH (20:15)
[2021-11-16] MEDS ORDERED: Heparin 5,000 UNITS/ML VIAL SC SCH (21:00)
[2021-11-16] MEDS ORDERED: Amlodipine 5 MG TAB PO SCH (21:00)
[2021-11-17 05:00] LABS: ALT (SGPT) 18 U/L (8-55); AST (SGOT) 15 U/L (5-34); Albumin 3.6 g/dL (3.4-4.8); Alkaline Phosphatase 86 U/L (40-110); Anion Gap 12 mmol/L (10-20); BUN (Urea Nitrogen) 7 mg/dL (8.4-25.7); Bilirubin, Total 0.6 mg/dL (0.2-1.2); Calc. Creatinine Clearance 0 mL/min (70-130); Carbon Dioxide 26 mmol/L (23-31); Chloride 106 mmol/L (98-107); Estimated GFR 88; Glucose 97 mg/dL (83-110); Potassium 3.5 mmol/L (3.5-5.1); Protein, Total 6.6 g/dL (5.8-8.1); Sodium 140 mmol/L (136-145)
[2021-11-17 05:01] LABS: #Eosinphils 0.2 thou/uL (0.0-0.7); #Lymphocytes 1.6 thou/uL (1.20-3.40); #Monocytes 0.6 thou/uL (0.11-0.59); #Neutrophils 3.9 thou/uL (1.40-6.50); %Basophils 0.2 % (0.0-1.0); %Monocytes 9.4 % (0.0-10.0); %Neutrophils 61.4 % (42.0-75.0); Hemoglobin 13.6 g/dL (14.0-18.0); Mean Corpuscular HGB CONC 32.7 g/dL (32.0-36.0); Mean Corpuscular Hemoglobin 30.4 pg (27.0-31.0); Mean Corpuscular Volume 93.1 fL (78.0-98.0); Mean Platelet Volume 7.9 fL (7.4-10.4); Platelet Count 183 thou/uL (130-400); RBC Distribution Width 16.6 % (11.5-14.5); Red Blood Cell (RBC) Count 4.46 mill/uL (4.70-6.10); White Blood Cell (WBC) Count 6.3 thou/uL (4.8-10.8)
[2021-11-17 08:28] VITALS: TEMP 97.8
[2021-11-17] MEDS: Gabapentin 100 MG CAP PO SCH (08:56)
[2021-11-17] MEDS: hydrALAZINE 25 MG TAB PO SCH ×2 (08:57→14:47)
[2021-11-17] MEDS ORDERED: Losartan 25 MG TAB PO SCH (09:00)
[2021-11-17] MEDS ORDERED: Amlodipine 10 MG TAB PO SCH (09:00)
[2021-11-17] MEDS ORDERED: Aspirin 81 mg Enteric Coated Tablet PO SCH (09:00)
[2021-11-17] MEDS ORDERED: Lidocaine 1% MPF 2 ML VIAL ONE (11:31)
[2021-11-17] MEDS ORDERED: PROPOFOL 200 MG/20 ML VIAL ONE (11:31)
[2021-11-17] MEDS ORDERED: Ondansetron HCl/PF 4 MG/2 ML Vial IVP PRN (12:28)
[2021-11-17] MEDS ORDERED: Promethazine HCl 25 MG/ML VIAL IM PRN (12:28)
[2021-11-17] MEDS ORDERED: Promethazine HCl 25 MG/ML VIAL IVPB PRN (12:28)
[2021-11-17 14:47] VITALS: BP 150/99
== END 2021-11-17 15:00 | disposition home or self-care (01) ==
LOC: ERS 08:42 → SDC 11:01 → 2NO 16:05
PROVIDERS: ADMIT Family Medicine; ATTEND Family Medicine
PROC: 0DB98ZX Excision of Duodenum, Via Natural or Artificial Opening Endoscopic, Diagnostic (ICD-10-PCS; principal; 2021-11-17)
PROC: 0DB78ZX Excision of Stomach, Pylorus, Via Natural or Artificial Opening Endoscopic, Diagnostic (ICD-10-PCS; 2021-11-17)
PROC: 0DBL8ZX Excision of Transverse Colon, Via Natural or Artificial Opening Endoscopic, Diagnostic (ICD-10-PCS; 2021-11-17)
PROC: 0DBM8ZX Excision of Descending Colon, Via Natural or Artificial Opening Endoscopic, Diagnostic (ICD-10-PCS; 2021-11-17)
DX: Z12.11 Encounter for screening for malignant neoplasm of colon (principal); D12.3 Benign neoplasm of transverse colon; D12.4 Benign neoplasm of descending colon; K31.A11 Gastric intestinal metaplasia without dysplasia, involving the antrum; K29.40 Chronic atrophic gastritis without bleeding; K31.89 Other diseases of stomach and duodenum; K29.80 Duodenitis without bleeding; K57.30 Diverticulosis of large intestine without perforation or abscess without bleeding; R00.1 Bradycardia, unspecified; I12.9 Hypertensive chronic kidney disease with stage 1 through stage 4 chronic kidney disease, or unspecified chronic kidney disease; E11.22 Type 2 diabetes mellitus with diabetic chronic kidney disease; N18.9 Chronic kidney disease, unspecified; I49.3 Ventricular premature depolarization; E83.42 Hypomagnesemia; M10.9 Gout, unspecified; E78.5 Hyperlipidemia, unspecified; K21.9 Gastro-esophageal reflux disease without esophagitis; G47.33 Obstructive sleep apnea (adult) (pediatric); I44.0 Atrioventricular block, first degree; I69.30 Unspecified sequelae of cerebral infarction; G89.29 Other chronic pain; M54.50 Low back pain, unspecified; R06.6 Hiccough; E66.9 Obesity, unspecified; Z68.35 Body mass index [BMI] 35.0-35.9, adult; Z85.038 Personal history of other malignant neoplasm of large intestine; Z85.528 Personal history of other malignant neoplasm of kidney; Z79.02 Long term (current) use of antithrombotics/antiplatelets; Z79.82 Long term (current) use of aspirin; Z79.84 Long term (current) use of oral hypoglycemic drugs; Z79.899 Other long term (current) drug therapy; Z91.018 Allergy to other foods; Z90.49 Acquired absence of other specified parts of digestive tract; Z90.5 Acquired absence of kidney; Z20.822 Contact with and (suspected) exposure to COVID-19
CPT/HCPCS: 43239; 45380; 45385; 71045; 80053; 82553; 82962 ×2; 83735; 84484 ×2; 85025; 93005; 96374; 99285; G0378 ×2; U0002; 36415; 36416; 84443; 88305; 88342; J1644; J2704; J3475